=== PATIENT | female | born 1955 | race Hispanic/Latino ===

== ENCOUNTER 2024-11-11 06:54 | Day surgery (SDC) | payer OTHER ==
[2024-11-11] VITALS (12 sets, daily range): BP systolic 88–122; BP diastolic 49–66; PULSE 67–90; RESP 14–17; TEMP 97.4–97.8
[~2024-11-11] VITALS: Ht 157.5 cm; Wt 87.1 kg
[~2024-11-11 06:54] MED LIST: ASPI-1197 PO; EMPA10TA PO; INS7030 SQ; LISI5TAB21 PO; METF-527 PO; SIMV-46 PO
[2024-11-11] MEDS: 0.9%NACL 1000ML 1,000 ML IV ONE (08:22)
[2024-11-11] MEDS ORDERED: proPOFol 10 MG/ML 20ML VIAL IV ONE (09:58)
[2024-11-11] MEDS ORDERED: SIMETHICONE 40 MG/0.6 ML ML ONE (10:08)
--- NOTE | 2024-11-11 11:26 | NUR ---
Full and complete discharge instructions given to Patient and family. Voiced understanding of GI procedures and follow up expectations/Diet. All questions answered. PIV removed with catheter tip intact. W/C to POV with Family.
== END 2024-11-11 11:45 | disposition home or self-care (01) ==
LOC: DAH 06:54 → ENDO 06:54
PROVIDERS: ATTEND Internal Medicine
DX: K59.00 Constipation, unspecified (principal); K57.30 Diverticulosis of large intestine without perforation or abscess without bleeding; K62.6 Ulcer of anus and rectum; I10 Essential (primary) hypertension; E11.9 Type 2 diabetes mellitus without complications; D49.0 Neoplasm of unspecified behavior of digestive system; E78.9 Disorder of lipoprotein metabolism, unspecified; Z98.51 Tubal ligation status; Z79.4 Long term (current) use of insulin; Z79.899 Other long term (current) drug therapy
CPT/HCPCS: 45381; 45380; 82948; J7030; J2704; A4215 ×2; A4223; A4222; A4221; A4663; A4606; J3490

== ENCOUNTER → 2024-11-21 | Outpatient (CLI) | payer OTHER ==
[2024-11-21 15:54] LABS: CREATININE 0.9 mg/dL (0.5-1.0)
== END | disposition home or self-care (01) ==
LOC: LAB 14:53
PROVIDERS: ATTEND Surgery
DX: C20 Malignant neoplasm of rectum (principal)
CPT/HCPCS: 36415; 82378; 82565; 84520

== ENCOUNTER → 2024-11-24 | Outpatient (CLI) | payer OTHER ==
[~2024-11-24] MED LIST changes: +IOHEXOL 350 MG/ML 100ML INFUS..BTL IV ONE
--- NOTE | 2024-11-24 10:09 | HMCIMG ---
CT CHEST/ABD/PELV W/CONRAST HISTORY: Malignant neoplasm of rectum COMPARISON: None TECHNIQUE: Multiple sequential axial images of the chest were obtained from the thoracic inlet through upper abdomen. Patient was given 100 cc of Omnipaque through intravenous route. FINDINGS: There is no evidence of pulmonary nodule or parenchymal disease. No pleural effusion or pericardial effusion is seen. There is no evidence of pneumothorax. There are normal size mediastinal and hilar lymph nodes. The heart is not enlarged. Coronary arterial calcifications are seen. Degenerative changes of the thoracolumbar spine are present. There is no evidence of adrenal nodule. IMPRESSION: 1. No evidence of pulmonary nodule or effusion is seen. CT CHEST/ABD/PELV W/CONRAST HISTORY: Malignant neoplasm of rectum COMPARISON: None TECHNIQUE: Multiple sequential axial images of the abdomen and pelvis were obtained from the dome of the diaphragm through symphysis pubis. Patient was not given contrast through intravenous route. Oral contrast was not given. FINDINGS: Liver measures 19.4 cm with fatty changes. There is right upper pole simple renal cyst measuring 3.2 cm. The liver, spleen, adrenal glands and pancreas are unremarkable. There is no evidence of hydronephrosis bilaterally. No evidence of renal stone is seen. Fecal material is seen in the colon. There are normal size retroperitoneal and mesenteric lymph nodes. No ascites is seen. Atherosclerotic changes are present. There is questionable rectal wall thickening and clinical correlation is recommended. Pelvic sidewalls are symmetric bilaterally. Bladder is well distended without wall thickening. IMPRESSION: 1. There is questionable rectal wall thickening. No ascites is seen. No bowel obstruction is seen. CT was performed with one or more following dose reduction techniques: automated exposure control, adjustment of the mA and kv according to patient's size, or use of a iterative reconstruction technique.
== END | disposition home or self-care (01) ==
LOC: RAH 08:32
PROVIDERS: ATTEND Surgery
DX: C20 Malignant neoplasm of rectum (principal); N28.1 Cyst of kidney, acquired; K76.0 Fatty (change of) liver, not elsewhere classified; I25.10 Atherosclerotic heart disease of native coronary artery without angina pectoris; I70.90 Unspecified atherosclerosis; M47.815 Spondylosis without myelopathy or radiculopathy, thoracolumbar region; N32.89 Other specified disorders of bladder
CPT/HCPCS: 71260; 74177; Q9967

== ENCOUNTER → 2024-11-25 | Outpatient (CLI) | payer OTHER ==
[~2024-11-25] MED LIST changes: +GADOTERATE MEGLUMINE 10 MMOL/20 ML VIAL IV ONE; -IOHEXOL 350 MG/ML 100ML INFUS..BTL IV ONE
--- NOTE | 2024-11-25 13:14 | HMCIMG ---
MR PELVIS W/WO CON HISTORY: Malignant neoplasm of rectum COMPARISON: None TECHNIQUE: MRI of the pelvis was performed utilizing multiple pulse sequences in axial, coronal and sagittal planes. Patient was given 18 cc of Clariscan through intravenous route. FINDINGS: There is circumferential wall thickening noted of the rectum with enhancement measuring 9.4 mm in thickness. Clinical correlation is recommended. Patient has history of rectal cancer. Bladder is moderately distended. Uterus is prominent. There is no evidence of pelvic adenopathy or ascites. No abnormal signal intensity is seen of the visualized bony structure.. IMPRESSION: 1. Circumferential wall thickening of the rectum with mild enhancement may be related to patient history of rectal cancer and clinical correlation is recommended. No evidence of pelvic adenopathy or ascites is seen.
== END | disposition home or self-care (01) ==
LOC: RAH 10:44
PROVIDERS: ATTEND Surgery
DX: C20 Malignant neoplasm of rectum (principal); N32.9 Bladder disorder, unspecified
CPT/HCPCS: 72197; A9575

== ENCOUNTER → 2025-05-27 | Outpatient (CLI) | payer OTHER ==
--- NOTE | 2025-05-28 08:37 | HMCIMG ---
EXAMINATION: MRI OF THE PELVIS WITHOUT AND WITH CONTRAST CLINICAL HISTORY: Malignant neoplasm of rectum. COMPARISON: MRI pelvis on 11/25/2024. TECHNIQUE: Multiplanar, multisequence MR images of the pelvis were obtained before and after the administration of intravenous contrast. FINDINGS: The urinary bladder is suboptimally distended with increased wall thickness. No intravesical mass. The uterus is normal in caliber and signal intensity. Bilateral ovaries are normal in caliber and signal intensity. There is minimal circumferential wall thickening with a maximum thickness of 4 mm extending for a length of 3.5 cm involving the rectum. There is no infiltration/extension into the surrounding structures. Rest of the included gastrointestinal tract is normal without any obstruction, ileus, or bowel wall thickening. The pelvic wall and floor musculature are well delineated and do not show any abnormality. The pelvic vascular structures are also normal. The bones and the joints of the pelvis are normal. No ascites. No lymphadenopathy. IMPRESSION: Minimal circumferential wall thickening involving the rectum ??? interval new finding. This may further be characterized with colonoscopy correlation. Cystitis. /[place]
== END | disposition home or self-care (01) ==
LOC: RAH 07:59
PROVIDERS: ATTEND Surgery
DX: C20 Malignant neoplasm of rectum (principal); N30.90 Cystitis, unspecified without hematuria; N32.89 Other specified disorders of bladder
CPT/HCPCS: 72197; A9575

== ENCOUNTER 2025-07-17 10:12 | Day surgery (SDC) | payer OTHER ==
[~2025-07-17 10:12] MED LIST changes: -ASPI-1197 PO; +CALC-1125 PO; +CHOL100046 PO; -GADOTERATE MEGLUMINE 10 MMOL/20 ML VIAL IV ONE; -INS7030 SQ; +INSU100I13 SQ; +METF-446 PO; -METF-527 PO
[2025-07-17 10:40] VITALS: BP 81/41; PULSE 96; RESP 13; TEMP 97.8
--- NOTE | 2025-07-17 11:00 | NUR ---
PT STATED SHE WAS DISCHARGED FROM THE HOSPITAL 2 DAYS AGO FOR A COLON RESECTION WITH DR. GHOTRA. PT STATES SHE WAS ADMITTED X 2 WEEKS FOLLOW UP APPOINTMENT TODAY DR. GHOTRA TOLD HER SHE HAS MORE DISCHARGE THAN NORMAL FROM COLOSTOMY AND WOULD LIKE TO SEND HER IN FOR IV HYDRATION
[2025-07-17] MEDS: LACTATED RINGERS 1000ML IV SCH (11:43)
[2025-07-17 11:48] VITALS: BP 86/40; PULSE 85; RESP 14
[2025-07-17 12:15] VITALS: BP 97/49; PULSE 86; RESP 13
--- NOTE | 2025-07-17 12:50 | NUR ---
PT STATES FEELING BETTER AFTER 1ST BAG OF LR ADMINISTERED
[2025-07-17 13:00] VITALS: BP 96/58; PULSE 86; RESP 14
--- NOTE | 2025-07-17 13:05 | NUR ---
CALL PENDING FROM [facility] TO ADVISE THEM ABOUT PATIENTS VS AND IF OK TO DISCHARGE. PENDING CALL BACK
[2025-07-17 13:35] VITALS: BP 99/47; PULSE 87; RESP 14
--- NOTE | 2025-07-17 13:35 | NUR ---
NURSING STAFF FROM [facility] MESSAGE ABOUT PATIENTS VS AND CURRENT STATUS TO DR. GHOTRA, PER STAFF DR. GHOTRA STATED OK TO DISCHARGE HOME. PT AND FAMILY MEMBER AT BEDSIDE INSTRUCTED TO GO TO ER IF S/S WORSEN OR CONTINUE PT TAKEN OUT VIA WHEELCHAIR IV REMOVED
== END 2025-07-17 13:40 | disposition home or self-care (01) ==
LOC: DAH 10:12
PROVIDERS: ATTEND Surgery
DX: E86.0 Dehydration (principal); C20 Malignant neoplasm of rectum; E87.1 Hypo-osmolality and hyponatremia; I12.9 Hypertensive chronic kidney disease with stage 1 through stage 4 chronic kidney disease, or unspecified chronic kidney disease; E11.22 Type 2 diabetes mellitus with diabetic chronic kidney disease; N18.9 Chronic kidney disease, unspecified; I25.10 Atherosclerotic heart disease of native coronary artery without angina pectoris; E78.5 Hyperlipidemia, unspecified; E66.9 Obesity, unspecified; Z68.32 Body mass index [BMI] 32.0-32.9, adult; Z79.4 Long term (current) use of insulin; Z79.899 Other long term (current) drug therapy; Z93.2 Ileostomy status
CPT/HCPCS: 96360; 96361; A4223 ×2; J7120 ×2; A4215; A4221; A4663; A4216; A4606

== ENCOUNTER 2025-07-20 15:01 | Inpatient (IN) | payer OTHER ==
[2025-07-20] VITALS (8 sets, daily range): BP systolic 91–113; BP diastolic 50–57; PULSE 92–102; RESP 13–24; O2SAT 96
[~2025-07-20] VITALS: Ht 157.5 cm; Wt 79.8 kg
--- NOTE | 2025-07-20 15:19 | ERN ---
ED Note History of Present Illness Stated Complaint: HYPOTENSION, DIZZINES Chief Complaint: Dizzy/Light Headed Time Seen by MD: 15:03 Dictation: PATIENT IS A 69-YEAR-OLD FEMALE COMING IN WITH HER FAMILY WITH COMPLAINTS OF HAVING DIZZINESS FEELING LIGHTHEADED AND HAVING BLOOD PRESSURE RUNNING IN THE 70S 80 SYSTOLIC FOR THE LAST WEEK. NO NAUSEA VOMITING. SHE DOES HAVE AN ILEOSTOMY IN PLACE THAT HAS BEEN PUTTING OUT MORE THAN A 1000 ML A DAY. NO FEVER NO CHILLS NO HEADACHE. SHE WAS TO GO TODAY TO OUTPATIENT TREATMENT FOR IV FLUIDS HOWEVER CAME TO THE EMERGENCY ROOM INSTEAD. Allergies: Coded Allergies: No Known Drug Allergies (Unverified Allergy, Unknown, 11/10/24) Home Meds Reported Medications Cholecalciferol (Vitamin D3) (Vitamin D3) 25 Mcg (1000 Unit) Capsule, 25 MCG PO DAILY, CAP 07/01/25 Calcium Carbonate (Calcium) 600 Mg Calcium (1500 Mg) Tablet, 600 MG PO DAILY, TAB 07/01/25 Insulin NPL/Insulin Lispro (Humalog Mix 75-25 Kwikpen) 100 Unit/Ml (75-25) Insuln.pen, 55 UNITS SQ HS, SYRINGE 07/01/25 Insulin NPL/Insulin Lispro (Humalog Mix 75-25 Kwikpen) 100 Unit/Ml (75-25) Insuln.pen, 50 UNITS SQ DAILY, SYRINGE 07/01/25 Empagliflozin (Jardiance) 10 Mg Tablet, 10 MG PO DAILY, TAB 07/01/25 Metformin HCl (Metformin HCl) 1,000 Mg Tablet, 1000 MG PO DAILY, TAB 07/01/25 Simvastatin (Simvastatin) 40 Mg Tablet, 40 MG PO HS, TAB 06/29/25 Lisinopril (Lisinopril) 5 Mg Tablet, 5 MG PO DAILY, TAB 06/29/25 Past Medical History Past Medical History: Diabetes-Type II, Hypertension Surgical History: Other Surgical History Other: TUBAL LIGATION History: Not Applicable RN Note Reviewed/Agreed w/PFSH: Yes Review of System Dictation CONSTITUTIONAL: NEGATIVE EXCEPT FOR HPI HEAD/FACE: NEGATIVE EXCEPT FOR HPI EENT: NEGATIVE EXCEPT FOR HPI RESPIRATORY: NEGATIVE EXCEPT FOR HPI GASTROINTESTINAL/ABDOMINAL: NEGATIVE EXCEPT FOR HPI ILEOSTOMY WITH LARGE AMOUNTS OF LIQUID STOOL GENITOURINARY: NEGATIVE EXCEPT FOR HPI MUSCULOSKELETAL: NEGATIVE EXCEPT FOR HPI INTEGUMENTARY: NEGATIVE EXCEPT FOR HPI NEUROLOGICAL/PSYCH: NEGATIVE EXCEPT FOR HPI LIGHTHEADED LAST DIZZY HEMATOLOGIC/LYMPHATIC: NEGATIVE EXCEPT FOR HPI ALL SYSTEMS NEGATIVE, EXCEPT NOTED ABOVE. 13 POINT REVIEW OF SYSTEMS ASSESSED AND ALL NEGATIVE EXCEPT FOR ABOVE. Initial Vital Sign VS Vital Signs Date Time Temp Pulse Resp B/P (MAP) Pulse Ox O2 Delivery O2 Flow Rate FiO2 07/20/25 15:13 98.1 98 16 86/51 98 Room Air* 0 21 Physical Exam Dictation NORMAL EXAM VITAL SIGNS REVIEWED GENERAL APPEARANCE: ALERT, ORIENTED X 3, NO ACUTE DISTRESS, WELL DEVELOPED, NOURISHED. HEAD AND FACE: NON-TRAUMATIC. EYES: PERRL, PINK CONJUNCTIVAS, EYELID NO TRAUMA, ANTERIOR CHAMBER WITH ARCUS SENILIS. EARS: PINNAS INTACT AND NO SIGNS OF TRAUMA OR ERYTHEMA EAR CANALS CLEAR AND NO DISCHARGE TM NO ERYTHEMA NOSE: NO DISCHARGE, NO BLEEDING. OROPHARYNX: MOUTH NORMAL, TONGUE PINK, PHARYNX CLEAR,NO ERYTHEMA, TONSILS NO EXUDATES, NO ABSCESSES NOTED, MUCOUS MEMBRANE MOIST NECK: SUPPLE, NON-TENDER, NO THYROMEGALY, NO MASSES, NO JVD, NO BRUITS BREAST:DEFERRED CHEST:NO TENDERNESS, NO CREPITUS, NO PARADOXICAL MOVEMENT, NO RETRACTIONS LUNGS:CLEAR, WELL-VENTILATED, SYMMETRIC, NO RALES, NO WHEEZING, NO RHONCHI, NO STRIDOR, GOOD BREATH SOUNDS BILATERALLY HEART: REGULAR RATE, REGULAR RHYTHM, NO MURMUR, NO GALLOPS VASCULAR: NO PERIPHERAL EDEMA, ABDOMEN: SOFT, POSITIVE BOWEL SOUNDS, NONDISTENDED, NO GUARDING, NONTENDER, NO REBOUND, NO MASSES NO HEPATOMEGALY, NO SPLENOMEGALY, NO GONZALEZ'S SIGN, NO HERNIAS. ILEOSTOMY TO RIGHT LOWER QUADRANT WITH LARGE AMOUNT OF YELLOW LIQUID STOOL. RECTAL: DEFERRED GENITAL: DEFERRED NEUROLOGICAL: NORMAL SPEECH, MOTOR FUNCTION INTACT, SENSORY FUNCTION INTACT GB W ALL EXTREMITIES NIH IS 0 MUSCULOSKELETAL: NECK NONTENDER, FULL RANGE OF MOTION, BACK NONTENDER, FULL RANGE OF MOTION, EXTREMITIES: NONTENDER, FULL RANGE OF MOTION SKIN: COLOR PINK, DRY, NO TURGOR, NO RASH, NO LACERATIONS, NO ABRASIONS, NO CONTUSIONS. LYMPHATIC: DEFERRED Results (Laboratory/Radiology) Laboratory/Radiology Laboratory Tests Test 07/20/25 15:31 White Blood Count 6.8 K/uL (4.8-10.8) Red Blood Count 3.38 MIL/uL (4.00-5.50) L Hemoglobin 9.6 g/dL (12.0-16.0) L Hematocrit 29.5 % (36-48) L Mean Corpuscular Volume 87.3 fL (79-99) Mean Corpuscular Hemoglobin 28.4 pg (27.0-33.0) Mean Corpuscular Hemoglobin Concent 32.5 g/dL (32.0-36.0) Red Cell Distribution Width 15.8 % (11.0-15.5) H Platelet Count 271 K/uL (130-400) Mean Platelet Volume 9.0 fL (7.5-10.5) Immature Granulocyte % (Auto) 1.6 % (0-1) H Neutrophils (%) (Auto) 62.4 % (40.0-77.0) Lymphocytes (%) (Auto) 20.4 % (21.0-51.0) L Monocytes (%) (Auto) 14.6 % (3.0-13.0) H Eosinophils (%) (Auto) 0.9 % (0.0-8.0) Basophils (%) (Auto) 0.1 % (0.0-5.0) Neutrophils # (Auto) 4.2 K/uL (1.8-7.7) Lymphocytes # (Auto) 1.4 K/uL (1.0-4.8) Monocytes # (Auto) 1.0 K/uL (0.1-1.0) Eosinophils # (Auto) 0.06 K/uL (0.00-0.70) Basophils # (Auto) 0.01 K/uL (0.00-0.20) Absolute Immature Granulocyte (auto 0.11 K/uL (0-1) Nucleated Red Blood Cells 0.0 % (0.0-0.19) Sodium Level 124 mmol/L (136-145) L Potassium Level 5.3 mmol/L (3.5-5.1) H Chloride Level 86 mmol/L (101-111) *L Carbon Dioxide Level 25 mmol/L (21-32) Blood Urea Nitrogen 59 mg/dL (7-18) H Creatinine 5.1 mg/dL (0.5-1.0) H Glomerular Filtration Rate Calc 9 mL/min (>90) Random Glucose 155 mg/dL (70-105) H Lactic Acid Level 4.2 mmol/L (0.8-2.5) H Total Calcium 8.6 mg/dL (8.5-10.1) Troponin I High Sensitivity < 4 ng/L (4-50) L Lipase 145 U/L (16-77) H Labs Reviewed?: Yes EKG Comment: EKG sinus rhythm/heart rate 92/axis normal/no ED Course ED Course Orders Procedure Category Date Status Time Blood Cult ELVIA 07/20/25 In Process 15:16 Lactic Acid LAB 07/20/25 Complete 15:16 Cbc With Differential LAB 07/20/25 Complete 15:16 Troponin I High LAB 07/20/25 Complete Sensitivity 15:16 Urinalysis Profile LAB 07/20/25 Logged 15:16 12 Lead Ekg Tracing- EKG 07/20/25 Logged Technical 15:16 0.9%Nacl 1000ml (Ns PHA 07/20/25 Complete 1000ml) 15:30 Stool Culture ELVIA 07/20/25 Logged 15:16 Lipase LAB 07/20/25 Complete 15:16 Basic Metabolic Panel LAB 07/20/25 Complete 15:16 Stool Panel Gi By Pcr LAB 07/20/25 Logged 15:16 Zosyn 3.375gm+Ns 50ml PHA 07/20/25 Complete (Zosyn 3.375gm+Ns 16:01 0.9%Nacl 1000ml (Ns PHA 07/20/25 In Process 1000ml) 16:30 Current Medications Medications (Trade) Dose Ordered Sig/Evelyne Route PRN Reason Start Time Stop Time Status Last Admin Dose Admin Piperacillin Sod/ Tazobactam Sod 50 ml @ 200 mls/hr ONCE STAT IVPB 07/20/25 16:01 07/20/25 16:15 DC 07/20/25 16:10 Sodium Chloride 1,000 ml @ 0 mls/hr ONCE ONCE IV 07/20/25 15:30 07/20/25 15:31 DC 07/20/25 15:53 Sodium Chloride 2,394 ml @ 798 mls/hr ONCE ONCE IV 07/20/25 16:30 07/20/25 19:29 07/20/25 16:10 Vital Signs Date Time Temp Pulse Resp B/P (MAP) Pulse Ox O2 Delivery O2 Flow Rate FiO2 07/20/25 15:14 99 18 86/51 95 Room Air 0 10/6/25 15:13 98.1 98 16 86/51 98 Room Air* 0 21 1745/patient and family aware she has been admitted for lactic acid doses acute on chronic kidney failure. Hyponatremia dehydration. All questions and patient remains hemodynamically stable at this time. Last blood pressure 136/80 systolic 1745/spoke to [facility] hospitalist and reviewed labs interventions for severe sepsis she agreed to admit patient. She is aware patient is hemodynamically stable at the present time. All questions answered HEART Score Response (Comments) Value History: Low suspicion (0) 0 Age: > 65yrs (+2) 2 Risk Factors: 1-2 risk factors (+1) 1 Initial Troponin: Normal limit (0) 0 Total 3 Medical Decision Making MDM MDM: Differential diagnosis: Electrolyte imbalance/dehydration/CHANCE/GI infection/electrolyte imbalance/dehydration/ACS/AMI Rationale: Tests considered and ordered secondary to shared decision making include: labs, ECG and radiology Previous outside records reviewed: Old ER visits. Risk of complication and/or morbidity or mortality of patient management: None Medications-Per medication reconciliation Need for hospitalization: Patient does meet criteria for hospitalization. Patient need admitted for septic shock CHANCE and failure fluids and management of her ileostomy drainage Need for emergency major/minor surgery: No There are no social concerns with this patient. Prescription drug management Prescriptions will include symptomatic care Patient's prior external medical records from other ER visits were reviewed by me as indicated. Prior testing and results from previous visits were reviewed. Prior tests were taken into account with medical decision making and resource utilization, independent historian/historians were used to obtain complete medical history. I independently interpreted the test that were performed, results were reviewed by me and considered findings on radiology if ordered. Medical management and examination interpretation discussions were had by me with other qualified healthcare professionals as indicated for the patient's care. DX & DISP Disposition: Inpatient Decision to Admit Time: 17:53 Departure Impression: Primary Impression: Hyponatremia Additional Impressions: Acute on chronic renal failure, Anemia, chronic renal failure, Hypochloremia, Severe sepsis, Uncontrolled diabetes mellitus, Diarrhea, Increased ileostomy output Condition: Stable Referrals: LUIS BEARD MD (PCP) Time of Disposition: 17:53 I have reviewed the case, and I agree with, Diagnosis and Plan GIANFRANCO AUSTIN NP Jul 20, 2025 15:19
[2025-07-20 15:37] LABS: IMMATURE GRANULOCYTE ABSOLUTE 0.11 K/uL (0-1); NUCLEATED RED BLOOD CELLS 0.0 % (0.0-0.19); PLATELET COUNT (AUTO) 271 K/uL (130-400); RED BLOOD CELL COUNT(AUTO) 3.38 MIL/uL (4.00-5.50); RED CELL DISTRIBUTION WIDTH 15.8 % (11.0-15.5); WHITE BLOOD COUNT (AUTO) 6.8 K/uL (4.8-10.8)
[2025-07-20] MEDS: 0.9%NACL 1000ML 1,000 ML IV ONE ×2 (15:53→19:02)
[2025-07-20 16:01] LABS: CREATININE 5.1 mg/dL (0.5-1.0); GLOMERULAR FILTR. RATE CALC 9.0 mL/min (>90); GLUCOSE,RANDOM 155.0 mg/dL (70-105); SODIUM SERUM 124.0 mmol/L (136-145); UREA NITROGEN, BLOOD 59.0 mg/dL (7-18)
[2025-07-20] MEDS: ZOSYN 3.375GM+NS 50ML 50 ML IVPB STA (16:10)
[2025-07-20] MEDS: 0.9%NACL 1000ML 2,394 ML IV ONE (16:10)
[2025-07-20 18:00] LABS: ADD UA MICROSCOPIC YES; APPEARANCE,URINE CLEAR (CLEAR); GLUCOSE, URINE (UA) NEGATIVE (NEGATIVE); LEUKOCYTE ESTERASE ,URINE 25 Leu/uL (NEGATIVE); NITRATE,URINE NEGATIVE (NEGATIVE); OCCULT BLOOD,URINE NEGATIVE (NEGATIVE)
[2025-07-20 18:02] LABS: OTHER CASTS, URINE 1 /LPF (None Seen); SQUAMOUS EPITHELIAL CELL,UR RARE /HPF (0-2); WBC CLUMP RARE /HPF (0-1)
--- NOTE | 2025-07-20 18:21 | EKG ---
[facility] Test Date: 2025-07-20 Test Time: 15:18:34 Pat Name: YAMILET RUBIO Department: [facility] Room: 219 Gender: F Academic Affairs Specialist: [id number] : [id number] Requested By: GIANFRANCO AUSTIN Order Number: [id number] Reading MD: Rosario Taylor Measurements Intervals [place] Rate: 92 P: 34 WA: 147 QRS: -15 QRSD: 93 T: 26 QT: 362 QTc: 450 Interpretive Statements Sinus rhythm Compared to ECG 07/05/2025 12:11:35 Myocardial infarct finding no longer present Electronically Signed On 07-21-2025 16:11:27 CDT by Rosario Taylor Please click the below link to view image of tracing.
--- NOTE | 2025-07-20 18:47 | NUR ---
[facility] [phone]
--- NOTE | 2025-07-20 18:51 | HP ---
[facility] HISTORY & PHYSICAL Date Patient Seen: Jul 20, 2025 Time of Visit: 18:50 Supervising Physician: Dr. Zay Blanco Primary Care Physician: Clare Thomas Outpatient Specialists: GI Inpatient Consults: GI PROBLEM LIST: Sepsis with septic shock, POA, unresponsive to fluids resuscitation, in need of pressors Acute complicated cystitis, POA Hypotension, in need of pressors Acute on chronic renal failure, POA (GFR 9, GFR 49 on 07/15/2025) Severe dehydration, POA 2/2 severe diarrhea Increased ileostomy/severe diarrhea Hyponatremia/hypochloremia Uncontrolled diabetes mellitus Anemia of chronic renal failure Chronic problem list/history: Rectal cancer status post low anterior resection, robotic creation of diverting ileostomy Hyperlipidemia Diabetes mellitus type two with hyperglycemia HPI: Ms. Varela, is a 69-year-old female with a history of diabetes-type II, and hypertension who presented with [facility] via EMS for evaluation of having dizziness, feeling lightheaded, and having blood pressure running in the 70s and 80s systolic for the last week. She does have an ileostomy in place that has been putting out ''more than a 1000 ml a day. The patient denied fever, nausea, vomiting, chills and headaches. The patient had an appointment today to the outpatient treatment for IV fluid, however, she came to the emergency room instead. The daughter at bedside reports that patient has decreased p.o. VS: HR 99 bmp, RR 18 bmp, BP 86/51, 95% RA, 98.1 F, O2 Delivery Method: Room Air, O2 Flow Rate: 0, Fio2: 21, Labs: Hematology: RBC 3.38, Hgb 9.6, Hct 29.5, RDW 15.8, Chemistry: Sodium 124, Potassium 5.35, Chloride 86, BUN 59, Creatinine 5.1, Random Glucose 155, Lactic Acid 4.2, Troponin I High Sens <4, Lipase 145, UA: Negative Nitrate, UA: Leuk Est 25, Serology: C. difficile: Negative. I assessed the patient at bedside in 219. Two daughters were at bedside. Patient's breathing was even, unlabored, in no distress. Patient appeared weak and chronically ill. I informed the patient and daughter of labs, diagnostics, and plan of care. I answered the daughter's multiple questions. They verbalized understanding and is in agreement with the plan. Plan and assessment are listed below. PAST MEDICAL HX: see above PAST SURGICAL HX: Tubal Ligation Rectal cancer status post low anterior resection, robotic creation of diverting ileostomy SOCIAL HISTORY: No tobacco, ETOH, or illicit drug use Coded Allergies: No Known Drug Allergies (Unverified Allergy, Unknown, 11/10/24) REVIEW OF SYSTEMS: 12 point ROS reviewed with patient. Pertinent positives mentioned above. Otherwise negative. PHYSICAL EXAM: GENERAL: Alert, awake, oriented x 3 HEENT: EOMI, Sclera non icteric, moist mucosa NECK: Supple, no JVD, trachea midline LUNGS: Clear breath sounds bilaterally. No wheezes HEART: Regular rate and rhythm. Normal S1 and S2, without murmurs ABD: Abdomen soft, nontender. Bowel sounds present. Ileostomy with watery greenish stool. EXT: No clubbing cyanosis or edema NEURO: Alert and oriented to person, follows commands Vital Signs (last 8hr) Date Time Temp Pulse Resp B/P (MAP) Pulse Ox O2 Delivery O2 Flow Rate FiO2 07/20/25 18:46 Room Air* 0 21 07/20/25 18:44 98.1 111 16 81/44 98 Room Air* 0 21 07/20/25 18:44 Room Air* 0 21 07/20/25 18:40 98.1 98 16 76/45 98 Room Air* 0 21 07/20/25 15:14 99 18 86/51 95 Room Air 0 07/20/25 15:13 98.1 98 16 86/51 98 Room Air* 0 21 LABS: Hematology Labs: Test 07/20/25 15:31 Range/Units White Blood Count 6.8 4.8-10.8 K/uL Red Blood Count 3.38 L 4.00-5.50 MIL/uL Hemoglobin 9.6 L 12.0-16.0 g/dL Hematocrit 29.5 L 36-48 % Mean Corpuscular Volume 87.3 79-99 fL Mean Corpuscular Hemoglobin 28.4 27.0-33.0 pg Mean Corpuscular Hemoglobin Concent 32.5 32.0-36.0 g/dL Red Cell Distribution Width 15.8 H 11.0-15.5 % Platelet Count 271 130-400 K/uL Mean Platelet Volume 9.0 7.5-10.5 fL Immature Granulocyte % (Auto) 1.6 H 0-1 % Neutrophils (%) (Auto) 62.4 40.0-77.0 % Lymphocytes (%) (Auto) 20.4 L 21.0-51.0 % Monocytes (%) (Auto) 14.6 H 3.0-13.0 % Eosinophils (%) (Auto) 0.9 0.0-8.0 % Basophils (%) (Auto) 0.1 0.0-5.0 % Neutrophils # (Auto) 4.2 1.8-7.7 K/uL Lymphocytes # (Auto) 1.4 1.0-4.8 K/uL Monocytes # (Auto) 1.0 0.1-1.0 K/uL Eosinophils # (Auto) 0.06 0.00-0.70 K/uL Basophils # (Auto) 0.01 0.00-0.20 K/uL Absolute Immature Granulocyte (auto 0.11 0-1 K/uL Nucleated Red Blood Cells 0.0 0.0-0.19 % Chemistry Labs: Test 07/20/25 15:31 Range/Units Sodium Level 124 L 136-145 mmol/L Potassium Level 5.3 H 3.5-5.1 mmol/L Chloride Level 86 *L 101-111 mmol/L Carbon Dioxide Level 25 21-32 mmol/L Blood Urea Nitrogen 59 H 7-18 mg/dL Creatinine 5.1 H 0.5-1.0 mg/dL Glomerular Filtration Rate Calc 9 >90 mL/min Random Glucose 155 H 70-105 mg/dL Lactic Acid Level 4.2 H 0.8-2.5 mmol/L Total Calcium 8.6 8.5-10.1 mg/dL Troponin I High Sensitivity < 4 L 4-50 ng/L Lipase 145 H 16-77 U/L DIAGNOSTICS / RADIOLOGY RESULTS: [ ] PLAN Transfer to ICU with continuous cardiac and pulse oximetry monitoring. Continue Zosyn 3.375 IV q.12 hours per renal dose. Start to the Levophed IV to keep map above 65. Titrate down and wean off Levophed. Continue midodrine 10 mg p.o. t.i.d.. NS 1 L bolus now then NS at 100 mL an hour. (ED administered 30 mL/kilos) Consult Dr. Quarles, Nephrology for acute renal failure. Consult GI. P.r.n. medications for pain management, nausea, vomiting, hypertension, fever, constipation Glucometer checks a.c. and HS with insulin regular sliding scale per protocol. Blood pressure checks every 4 hours and as needed. Reconcile home medications once available. Monitor renal and liver function. Monitor electrolytes and treat accordingly. A.m. labs. GI and DVT prophylaxis. Further orders/plan per hospitalization course. NEURO: Minimize central acting medications as possible. Maintain fall precautions, adequate lighting during the day PULMONARY: Supplemental 02 as needed. Maintain aspiration precautions at all times CARDIOVASCULAR: Follow hemodynamics. Vital signs per facility protocol GI & NUTRITION: Continue with nutritional support. Continue stool softeners and laxatives as needed. KIDNEYS & ELECTROLYTES: Strict monitoring of intake, output and overall fluid balance. Avoid nephrotoxic medications to the extent possible. Medications to be dosed according to renal function. Monitor electrolytes and replace as needed ENDOCRINE: Maintain blood glucose between 100-180 at all times. Hypoglycemia protocol in place INFECTIOUS DISEASE: Trend temperature, WBC and procalcitonin level Follow cultures, deescalate antibiotics as soon as possible. Panculture if new onset fever ONCOLOGY/HEMATOLOGY/COAGULATION: Monitor for s/s of bleeding Monitor hemoglobin, coagulation studies as needed SKIN: Pressure ulcer prevention per facility protocol Specialty mattress ORTHO/REHAB: Continue PT/OT Prophylaxis: Continue GI and DVT prophylaxis Code Status: Full Resuscitation Disposition: TBD Total critical care time over 60 minutes. ATTESTATION BY PHYSICIAN I reviewed the documentation, medical decision making, and treatment plan as n oted by the MICHELLE above. I agree with the findings and plan of care. Nikolas Melendez MD, LUCIA M FNP Jul 20, 2025 18:50
--- NOTE | 2025-07-20 18:51 | NUR ---
SECRATARY ATTEMPTING CELL PHONE FOR [facility] AT THIS TIME
--- NOTE | 2025-07-20 18:55 | NUR ---
SPOKE WITH JOHSUA AT [facility] ORDERS TO BE INPUT
--- NOTE | 2025-07-20 18:56 | NUR ---
NOTIFIED JOSHUA OF BP DROP AND WILL REC ORDERS TO ASSIST WITH TREND
--- NOTE | 2025-07-20 19:24 | NUR ---
ASSUMED PT CARE
[2025-07-20] MEDS: NOREPINEPHRIN 4MG/NS 250ML 250 ML IV SCH (19:25)
[2025-07-20] MEDS: 0.9%NACL 1000ML 1,000 ML IV SCH (20:23)
--- NOTE | 2025-07-20 20:36 | NUR ---
STOOL SAMPLE SENT BLADDER SCAN DONE APPROX 900MLS
[2025-07-20] MEDS: FAMOTIDINE 20MG TAB PO SCH (20:44)
--- NOTE | 2025-07-20 21:30 | NUR ---
RECEIVED REPORT FROM ENDY CAMARA FROM ER; PATIENT BROUGHT UP, AOX4, IN NO DISTRESS, VITALS CHARTED, NO WOUNDS, ALL HER ITEMS WERE BROUGHT UP IN A BAG, DAUGHTERS AT BEDSIDE
--- NOTE | 2025-07-20 22:42 | NUR ---
YAMIL [employer] WE[employer] APPLICATION DEVELOPER BEDSIDE WITH PATIENT
[2025-07-20] MEDS ORDERED: 0.9%NACL 50ML IV SCH (23:10)
[2025-07-21] VITALS (97 sets, daily range): BP systolic 77–136; BP diastolic 37–84; PULSE 58–109; RESP 12–42; TEMP 98.1–98.9; O2SAT 92–98
--- NOTE | 2025-07-21 00:39 | HMCIMG ---
EXAM: CT Abdomen and Pelvis Without IV contrast CLINICAL HISTORY: abd pain, anorexia, s/p ileostomy, septic shock TECHNIQUE: Axial computed tomography images of the abdomen and pelvis without intravenous contrast. CONTRAST: No IV contrast. COMPARISON: July 09, 2025 FINDINGS: LUNG BASES: Minimal bibasilar infiltrates. No pleural effusions LIVER: Unremarkable. GALLBLADDER AND BILE DUCTS: The gallbladder appears within normal limits. No radioopaque gallstones are seen. No biliary ductal dilatation is evident. PANCREAS: Unremarkable. SPLEEN: Unremarkable. ADRENAL GLANDS: Unremarkable. KIDNEYS, URETERS, AND BLADDER: Bilateral renal cysts.. There is no hydronephrosis or hydroureter. No urinary calculi are seen. STOMACH AND BOWEL: Several dilated loops of small bowel identified. The terminal ileum is decompressed.. There may be a point of transition within the pelvis.. No evidence suggesting enteritis or colitis. Right lower quadrant ostomy is seen. Surgical clips are seen within the rectum with thickening of the presacral space. APPENDIX: No evidence of acute appendicitis on CT examination. PERITONEUM: No free fluid. No free air. LYMPH NODES: No lymphadenopathy is evident. REPRODUCTIVE: Unremarkable as visualized. VASCULATURE: No evidence of abdominal aortic aneurysm. BONES: No aggressive appearing osseous lesion. No acute osseous pathology evident. IMPRESSION: 1. Findings suggest low-grade distal small bowel obstruction, which was present previously but appears to be overall improved. /[place]
[2025-07-21 00:52] LABS: ABG BASE EXCESS -2.1 mmol/L (-2.0-3.0); ABG HCO3 21.7 mmol/L (21.0-28.0); ABG OXYGEN SATURATION 91.8 % (94.0-98.0); ABG PCO2 34 mmHg (32-45); ABG PH 7.424 (7.350-7.450); CARBON MONOXIDE 0 % (0.5-1.5); DEVICE COMMENT RB,NP LUCIA; PO2, ARTERIAL BG 66.8 mmHg (83.0-108.0); TEMPERATURE, CELSIUS BG 37.0 CELSIUS (35.5-37.0); VENT MODE, BG RA (ROOM AIR)
[2025-07-21] MEDS: ZOSYN 3.375GM +NS 50ML IVPB SCH (02:12)
[2025-07-21 05:21] LABS: NUCLEATED RED BLOOD CELLS 0.0 % (0.0-0.19); PLATELET COUNT (AUTO) 233.0 K/uL (130-400); RED BLOOD CELL COUNT(AUTO) 3.3 MIL/uL (4.00-5.50); RED CELL DISTRIBUTION WIDTH 15.8 % (11.0-15.5); WHITE BLOOD COUNT (AUTO) 4.9 K/uL (4.8-10.8)
[2025-07-21 05:54] LABS: CREATININE 2.7 mg/dL (0.5-1.0); GLOMERULAR FILTR. RATE CALC 19.0 mL/min (>90); GLUCOSE,RANDOM 147.0 mg/dL (70-105); PHOSPHORUS 4.3 mg/dL (2.5-4.9); SODIUM SERUM 137.0 mmol/L (136-145); UREA NITROGEN, BLOOD 41.0 mg/dL (7-18)
--- NOTE | 2025-07-21 08:02 | PN ---
[facility] PROGRESS NOTE Date Patient Seen: Jul 21, 2025 Time of Visit: 08:02 Supervising Physician: ARACELI PHILLIP MD Primary Care Physician: LUIS BEARD MD Outpatient Specialists: [ ] Inpatient Consults: [facility] PROBLEM LIST: Septic shock likely from acute complicated cystitis POA requiring pressors Acute complicated cystitis, POA Prerenal CHANCE on CKD, POA, improving Severe dehydration from high output ileostomy, POA Electrolyte derangement hyperkalemia, hypochloremia, hyponatremia. Mild Pancreatitis Elevated lactic acid, POA Hyperglycemia in the presence of type 2 diabetes mellitus, POA Chronic anemia likely from CKD Chronic problem list/history: Rectal cancer status post low anterior resection, robotic creation of diverting ileostomy Hyperlipidemia Diabetes mellitus type two with hyperglycemia INTERVAL HISTORY: Chart reviewed including all laboratory and imaging results. Patient assessed at bedside. Denies chest pain, palpitation, or shortness for breath. Reports feeling much better. Improved dizziness and weakness reported. Hemodynamically stable. On low-dose Levophed of 0.03 mcg/kg per minute. She continues on NS at 100 mL/hour. We will give 1 L bolus at this time. No other major overnight events reported. She has had good urine output of 2.1 L in last 24 hours. Kidneys are improving with creatinine of 2.7 GFR of 19 BUN of 41 glucose 147 mg/dL drip. Lactic acid trending down 2.9 the latest. Hemoglobin of 9.4 hematocrit of 29.1 platelet count of 233 K. ABGs morning shows a pH of 7.424/34/66.84/21.7. Urine culture growing Gram-negative rods. Patient to continue Zosyn. Chest x-ray with no acute pathology.Right chest wall Port-A-Cath. Pending blood cultures. REVIEW OF SYSTEMS: 12 point ROS reviewed with patient. Pertinent positives mentioned above. Otherwise negative. PHYSICAL EXAM: GENERAL: alert, weak, awake oriented x 3 HEENT: EOMI, Sclera non icteric, moist mucosa NECK: Supple, no JVD, trachea midline LUNGS: Clear breath sounds bilaterally. No wheezes HEART: Regular rate and rhythm. Normal S1 and S2, without murmurs. Right chest PermCath ABD: Obese Abdomen soft, nontender. Bowel sounds present. colostomy Urinary: Coronado catheter in place EXT: No clubbing cyanosis or edema NEURO: Alert and oriented to person, follows commands Vital Signs (last 8hr) Date Time Temp Pulse Resp B/P (MAP) Pulse Ox O2 Delivery O2 Flow Rate FiO2 07/21/25 06:47 111/56 07/21/25 06:45 65 17 105/57 (73) 95 07/21/25 06:30 74 17 103/55 (71) 95 07/21/25 06:20 81 19 77/41 (53) 90 07/21/25 06:15 65 18 111/56 (74) 96 07/21/25 06:00 66 15 103/56 (72) 92 07/21/25 05:45 78 15 120/58 (78) 100 07/21/25 05:30 78 22 103/56 (72) 95 07/21/25 05:15 64 18 97/49 (65) 96 07/21/25 05:00 73 17 108/55 (72) 94 07/21/25 04:45 78 17 94/67 (76) 92 07/21/25 04:30 74 18 103/55 (71) 94 07/21/25 04:15 63 18 103/46 (65) 98 07/21/25 04:00 98.1 07/21/25 04:00 64 16 110/51 (70) 93 07/21/25 04:00 93 Room Air* 0 21 07/21/25 03:45 74 19 100/54 (69) 93 07/21/25 03:30 74 18 97/54 (68) 93 07/21/25 03:15 77 18 98/49 (65) 94 07/21/25 03:00 76 14 98/50 (66) 95 07/21/25 02:45 77 19 95/52 (66) 90 07/21/25 02:30 77 19 86/46 (59) 94 07/21/25 02:15 77 18 95/48 (64) 95 07/21/25 02:00 79 17 110/56 (74) 95 07/21/25 01:45 78 18 98/52 (67) 94 07/21/25 01:30 82 17 93/46 (62) 94 07/21/25 01:15 85 18 91/50 (64) 91 07/21/25 01:00 87 15 99/55 (70) 91 07/21/25 00:45 93 19 91/43 (59) 93 07/21/25 00:30 109 20 97/50 (66) 91 07/21/25 00:15 86 18 99/49 (66) 93 LABS: Hematology Labs: Test 07/21/25 05:02 07/20/25 15:31 Range/Units White Blood Count 4.9 # 4.8-10.8 K/uL Red Blood Count 3.30 L 4.00-5.50 MIL/uL Hemoglobin 9.4 L 12.0-16.0 g/dL Hematocrit 29.1 L 36-48 % Mean Corpuscular Volume 88.2 79-99 fL Mean Corpuscular Hemoglobin 28.5 27.0-33.0 pg Mean Corpuscular Hemoglobin Concent 32.3 32.0-36.0 g/dL Red Cell Distribution Width 15.8 H 11.0-15.5 % Platelet Count 233 130-400 K/uL Mean Platelet Volume 9.1 7.5-10.5 fL Nucleated Red Blood Cells 0.0 0.0-0.19 % Immature Granulocyte % (Auto) 1.6 H 0-1 % Neutrophils (%) (Auto) 62.4 40.0-77.0 % Lymphocytes (%) (Auto) 20.4 L 21.0-51.0 % Monocytes (%) (Auto) 14.6 H 3.0-13.0 % Eosinophils (%) (Auto) 0.9 0.0-8.0 % Basophils (%) (Auto) 0.1 0.0-5.0 % Neutrophils # (Auto) 4.2 1.8-7.7 K/uL Lymphocytes # (Auto) 1.4 1.0-4.8 K/uL Monocytes # (Auto) 1.0 0.1-1.0 K/uL Eosinophils # (Auto) 0.06 0.00-0.70 K/uL Basophils # (Auto) 0.01 0.00-0.20 K/uL Absolute Immature Granulocyte (auto 0.11 0-1 K/uL Chemistry Labs: Test 07/21/25 06:49 07/21/25 05:02 07/20/25 19:43 07/20/25 15:31 Range/Units Whole Blood Glucose 158 H 70-110 MG/DL Sodium Level 137 136-145 mmol/L Potassium Level 4.7 3.5-5.1 mmol/L Chloride Level 104 101-111 mmol/L Carbon Dioxide Level 21 21-32 mmol/L Blood Urea Nitrogen 41 H 7-18 mg/dL Creatinine 2.7 H 0.5-1.0 mg/dL Glomerular Filtration Rate Calc 19 >90 mL/min Random Glucose 147 H 70-105 mg/dL Total Calcium 8.3 L 8.5-10.1 mg/dL Phosphorus Level 4.3 2.5-4.9 mg/dL Magnesium Level 2.00 1.80-2.40 mg/dL Thyroid Stimulating Hormone (TSH) 0.41 # 0.36-3.74 uIU/mL Lactic Acid Level 4.0 H 0.8-2.5 mmol/L Troponin I High Sensitivity < 4 L 4-50 ng/L Lipase 145 H 16-77 U/L DIAGNOSTICS / RADIOLOGY RESULTS: [ ][place] [address] [place] [address] [id number] IMAGING REPORT Signed PATIENT: YAMILET RUBIO MR#: [id number] : 1955 SEX: F AGE: 69 LOCATION: [facility] ORDER 1232 STATUS: ADM IN REPORT#: [id number] SERVICE 1231 REASON: sepsis ORDERING PHYSICIAN: TODD MILLARD PROCEDURE: CXR1VW - CHEST 1VW EXAM: CR Chest, 1 View. CLINICAL HISTORY: sepsis COMPARISON: July 09, 2025 FINDINGS: LUNGS: There is no mass, infiltrate, or acute pulmonary abnormality. PLEURAL SPACES: No evidence of pleural effusion or pneumothorax. MEDIASTINUM: There is cardiomegaly with central line in the SVC BONES: No acute osseous abnormality. IMPRESSION: No acute cardiopulmonary pathology is evident. /[place] DICTATED BY: KRISTAN WELLER MD DATE: 07/21/251555 ELECTRONICALLY SIGNED BY: KRISTAN WELLER MD DATE: 07/21/251555 [facility] [address] [place] [id number] IMAGING REPORT Signed PATIENT: YAMILET RUBIO MR#: [id number] : 1955 SEX: F AGE: 69 LOCATION: [facility] ORDER 11 STATUS: ADM IN REPORT#: [id number] SERVICE 09 REASON: abd pain, anorexia, s/p ileostomy, septic shock ORDERING PHYSICIAN: YAMIL KHOURY PROCEDURE: ABD PEL WO - CT ABDOMEN/PELVIS W/O CONTRAST EXAM: CT Abdomen and Pelvis Without IV contrast CLINICAL HISTORY: abd pain, anorexia, s/p ileostomy, septic shock TECHNIQUE: Axial computed tomography images of the abdomen and pelvis without intravenous contrast. CONTRAST: No IV contrast. COMPARISON: July 09, 2025 FINDINGS: LUNG BASES: Minimal bibasilar infiltrates. No pleural effusions LIVER: Unremarkable. GALLBLADDER AND BILE DUCTS: The gallbladder appears within normal limits. No radioopaque gallstones are seen. No biliary ductal dilatation is evident. PANCREAS: Unremarkable. SPLEEN: Unremarkable. ADRENAL GLANDS: Unremarkable. KIDNEYS, URETERS, AND BLADDER: Bilateral renal cysts.. There is no hydronephrosis or hydroureter. No urinary calculi are seen. STOMACH AND BOWEL: Several dilated loops of small bowel identified. The terminal ileum is decompressed.. There may be a point of transition within the pelvis.. No evidence suggesting enteritis or colitis. Right lower quadrant ostomy is seen. Surgical clips are seen within the rectum with thickening of the presacral space. APPENDIX: No evidence of acute appendicitis on CT examination. PERITONEUM: No free fluid. No free air. LYMPH NODES: No lymphadenopathy is evident. REPRODUCTIVE: Unremarkable as visualized. VASCULATURE: No evidence of abdominal aortic aneurysm. BONES: No aggressive appearing osseous lesion. No acute osseous pathology evident. IMPRESSION: 1. Findings suggest low-grade distal small bowel obstruction, which was present previously but appears to be overall improved. /[place] DICTATED BY: KRISTAN WELLER MD DATE: 07/21/25137 ELECTRONICALLY SIGNED BY: KRISTAN WELLER MD DATE: 07/21/25137 PLAN Chest x-ray 1 L of NS bolus Repeat lactic acid Continue NS at 100 mL/hour Continue IV antibiotics with Zosyn Follow urine culture Wean Levophed as tolerated to maintain map above 65 Continue midodrine 10 mg p.o. 3 times a day Follow Nephrology recommendations Consult patient's colorectal surgeon for eval and recommendations of output ostomy NEURO: Minimize central acting medications as possible. Fall Precautions. Well lighted room through the day and minimize interruptions through the night to prevent acute delirium. PULMONARY: Supplemental 02 as needed Titrate Fio2 to keep Spo2 > or = 90% DuoNebs and CPT as needed IS hourly while awake for pulmonary hygiene Out of bed to chair as tolerated CARDIOVASCULAR: Follow hemodynamics. Titrate vasopressor to keep MAP >65 or systolic blood pressure >95mmHg DIPS: Levophed LINES: PIV Right chest wall PermCath GI & NUTRITION: Continue nutritional support Aspirations precautions Prokinetic agents and laxatives as needed KIDNEYS & ELECTROLYTES: Strict monitoring of intake and output Daily weights Avoid nephrotoxic agents Monitor electrolytes and replace as needed Goal urine output of 30mL/hr or 0.5mL/kg/hr Urine output: [ ] Fluid Balance: [ ] ENDOCRINE: Maintain blood glucose between 100-180 at all times. Insulin sliding scale for blood glucose management INFECTIOUS DISEASE: Trend temperature. Marie-culture if febrile. Micro: [ ] Blood cultures Stool cultures Urine cultures Antibiotics: Zosyn HEMATOLOGY & COAGULATION: Monitor H&H. Keep Hgb > 7 Transfuse 1 unit of PRBC for Hgb < 7 Transfuse 1 pack of platelets of platelets < 20, 000 Watch for any signs and symptoms of bleeding SKIN: Pressure ulcer prevention per facility protocol Rehab: PT/OT Prophylaxis: GI: [Famotidine ] DVT: [Lovenox ] Code Status: Full Resuscitation Disposition: [ICU ] Other: Total patient care time exceeds 35 minutes excluding all procedures. Case was discussed and seen with my supervising physician. The above plan was formulated and agreed upon. ATTESTATION BY PHYSICIAN The patient has been seen and evaluated, the case has been discussed with the LEAD NURSE, I agree with the clinical findings and plan of care. TODD BRYANT MD Jul 21, 2025 08:02
[2025-07-21] MEDS: LOPERAMIDE HCL 2 MG CAP PO PRN (08:45)
[2025-07-21] MEDS: ENOXAPARIN SODIUM 40 MG/0.4 ML SYRINGE SQ SCH (09:26)
[2025-07-21] MEDS ORDERED: LOPERAMIDE 1 MG/7.5 ML UDCUP PO SCH (11:30)
[2025-07-21] MEDS: LOPERAMIDE HCL 2 MG CAP PO SCH (11:51)
[2025-07-21] MEDS: 0.9%NACL 1000ML 1,000 ML IV SCH (12:38)
[2025-07-21] MEDS ORDERED: 0.9%NACL 1000ML 1,000 ML IV SCH (13:31)
--- NOTE | 2025-07-21 14:30 | NUR ---
DCP: HOME Pt states her 2 sons lives at home with her. Pt reports se remains able to do her self care, cook, and maintain her home on her own. Pt drives self as needed.Pt pending approval for collette, has shower chair, no provider, [facility] or [facility]. PCP is Clare Thomas and uses [facility] for rx needs.discussed dc needs, pt does not feel she needs SNF, states she wants to return home at dc Addendum: 07/21/25 at 1440 by CHANI MOJICA Amended: Links added.
--- NOTE | 2025-07-21 14:57 | HMCIMG ---
EXAM: CR Chest, 1 View. CLINICAL HISTORY: sepsis COMPARISON: July 09, 2025 FINDINGS: LUNGS: There is no mass, infiltrate, or acute pulmonary abnormality. PLEURAL SPACES: No evidence of pleural effusion or pneumothorax. MEDIASTINUM: There is cardiomegaly with central line in the SVC BONES: No acute osseous abnormality. IMPRESSION: No acute cardiopulmonary pathology is evident. /[place]
[2025-07-21 17:24] LABS: CREATININE,URINE RANDOM 62.7 mg/dL (30-135)
--- NOTE | 2025-07-21 18:23 | CONS ---
GASTROENTEROLOGY CONSULTATION NOTE Date of Consultation: Jul 21, 2025 Time of Consultation: 18:19 History of Present Illness: [This is a 69-year-old female patient with past medical history for rectal cancer who had completed VALERIE, type 2 diabetes, and hypertension who had undergone a robotic low anterior resection, with creation of diverting ileostomy, intraoperative flexible sigmoidoscopy on 07/01/2025. Patient had developed a postoperative ileus and was discharged on 07/15/2025. She now presented to the emergency room of having dizziness, lightheadedness and low blood pressures for the last week. ER report patient denied having nausea and vomiting. In ER patient reported having more than a 1000 mL of ileostomy output. CT of abdomen and pelvis findings suggest low-grade distal small bowel obstruction, improved from previous exam. Chest x-ray showing no acute cardiopulmonary pathology. Patient's WBC of 4.9, hemoglobin 9.4, hematocrit 29.1, platelets 233. Chemistries significant for BUN of 41, creatinine 2.7, glucose 147, calcium 8.3. Stool study negative for C diff. patient currently on Levophed drip at 0.1 mcg/kg/min, and midodrine 10mg t.i.d. we were consulted for high-output from ileostomy. On exam, patient is awake, alert, and oriented x 3 in no acute distress. Her respirations are unlabored. BBS are clear. Abdomen is soft and not distended with active bs. Ileostomy patent and with watery to small amount of oatmeal like succus. Patient reported feeling weak and sleepy since last week and progressively felt worse. POC discussed. Will begin lomotil ac and hs, Encourage patient to eat frequently as previously instructed and reinforced by MALIK Barker weapons specialist. All patient and daughter's questions were answered to their satisfaction and patient and daughters verbalized understanding and agreement. Review of Systems: CONSTITUTIONAL: No malaise or change in sensation of wellbeing. ENMT: No rhinorrhea, otorrhea, sinus pain, ear ache. CARDIOVASCULAR: No angina, palpitations, orthopnea or paroxysmal dyspnea. RESPIRATORY: No SOB. GASTROINTESTINAL: No abdominal pain, nausea, vomiting, diarrhea, hematemesis, melena or change in the patient's habitual bowel movements consistency/number. GENITOURINARY: No dysuria, hematuria or change in bladder continence. MUSCULOSKELETAL: No new muscle pain or decrease in muscular strength. No new joint swelling, redness or tenderness. SKIN: No new rash. Past Medical History: Coded Allergies: No Known Drug Allergies (Unverified Allergy, Unknown, 11/10/24) Physical Exam: GEN: Awake, alert, oriented in person, time and place, and in no acute distress. HEENT: No rhinorrhea. Oral mucosa is pink, moist and within normal limits. CHEST: Lung auscultation revealed normal breath sounds bilaterally. CARDIAC:Heart sounds are regular. ABD: Soft, non-tender and not distended. No peritoneal signs on palpation. Normal bowel sounds. Ileostomy with watery to oatmeal like output. EXT: No cyanosis or clubbing. No edema. SKIN: Intact. No rashes. NEURO: Alert and oriented to name, place and person.No focal motor deficits. Normal speech. Vital Sign (Last 24 Hours) 07/21/25 07/21/25 07/21/25 08:00 08:15 09:30 Temp 98.1 Pulse 82 Resp 12 B/P (MAP) 103/52 (69) Pulse Ox 95 O2 Delivery Room Air* O2 Flow Rate 0 FiO2 21 Intake & Output (last 24hrs) 07/20/25 07/20/25 07/21/25 15:00 23:00 07:00 Intake Total 345.0 ml 970.0 ml Output Total 2400 ml Balance 345.0 ml -1430.0 ml Laboratory: [ ] Laboratory: Test 07/21/25 16:25 07/21/25 16:15 07/21/25 16:13 07/21/25 05:02 Range/Units Urine Random Creatinine 62.70 30-135 mg/dL Urine Random Sodium 61 40-220 mmol/l Lactic Acid Level 2.5 0.8-2.5 mmol/L Whole Blood Glucose 105 70-110 MG/DL White Blood Count 4.9 # 4.8-10.8 K/uL Red Blood Count 3.30 L 4.00-5.50 MIL/uL Hemoglobin 9.4 L 12.0-16.0 g/dL Hematocrit 29.1 L 36-48 % Mean Corpuscular Volume 88.2 79-99 fL Mean Corpuscular Hemoglobin 28.5 27.0-33.0 pg Mean Corpuscular Hemoglobin Concent 32.3 32.0-36.0 g/dL Red Cell Distribution Width 15.8 H 11.0-15.5 % Platelet Count 233 130-400 K/uL Mean Platelet Volume 9.1 7.5-10.5 fL Nucleated Red Blood Cells 0.0 0.0-0.19 % Sodium Level 137 136-145 mmol/L Potassium Level 4.7 3.5-5.1 mmol/L Chloride Level 104 101-111 mmol/L Carbon Dioxide Level 21 21-32 mmol/L Blood Urea Nitrogen 41 H 7-18 mg/dL Creatinine 2.7 H 0.5-1.0 mg/dL Glomerular Filtration Rate Calc 19 >90 mL/min Random Glucose 147 H 70-105 mg/dL Total Calcium 8.3 L 8.5-10.1 mg/dL Phosphorus Level 4.3 2.5-4.9 mg/dL Magnesium Level 2.00 1.80-2.40 mg/dL Thyroid Stimulating Hormone (TSH) 0.41 # 0.36-3.74 uIU/mL Test 07/21/25 00:51 07/20/25 20:10 07/20/25 17:52 07/20/25 15:31 Range/Units Blood Gas Specimen Type Arterial Arterial Blood pH 7.424 7.350-7.450 Arterial Blood Partial Pressure CO2 34 32-45 mmHg Arterial Blood Partial Pressure O2 66.8 L 83.0-108.0 mmHg Arterial Blood HCO3 21.7 21.0-28.0 mmol/L Arterial Blood Oxygen Saturation 91.8 L 94.0-98.0 % Arterial Blood Base Excess -2.1 L -2.0-3.0 mmol/L Hemoglobin (Blood Gas) 11.5 L 12.0-16.0 g/dL Sodium (Blood Gas) 133 L 136-145 MMOL/L Bedside Potassium (Blood Gas) 4.7 H 3.4-4.5 MMOL/L Bedside Chloride (Blood Gas) 103 98-107 MMOL/L Bedside Glucose (Blood Gas) 156 H 65-95 MG/DL Bedside Ionized Calcium (Blood Gas) 1.11 L 1.15-1.33 MMOL/L Bedside Lactic Acid (Blood Gas) 1.53 H 0.36-0.75 MMOL/L Blood Gas Temperature 37.0 35.5-37.0 CELSIUS Blood Gas Vent Mode RA ROOM AIR FiO2 21.0 % Blood Gas Specimen Comment RB,WASTEWATER PROCESS ENGINEER YAMIL C. difficile Antigen and Toxins A,B See comments NEG Urine Color LIGHT-YELLOW YELLOW Urine Appearance CLEAR CLEAR Urine pH 7.0 5.0-8.0 Urine Specific [place] 1.007 1.001-1.031 Urine Protein NEGATIVE NEGATIVE mg/dL Urine Glucose (UA) NEGATIVE NEGATIVE mg/dL Urine Ketones NEGATIVE NEGATIVE mg/dL Urine Occult Blood NEGATIVE NEGATIVE Urine Nitrate NEGATIVE NEGATIVE Urine Bilirubin NEGATIVE NEGATIVE mg/dL Urine Urobilinogen 0.2 0.2-1.0 mg/dL Urine Leukocyte Esterase 25 H NEGATIVE Marquez/uL Urine RBC 0-1 0-1 /HPF Urine WBC 6-10 H 0-1 /HPF Urine WBC Clumps (Auto) RARE 0-1 /HPF Urine Squamous Epithelial Cells RARE 0-2 /HPF Urine Bacteria RARE None Seen /HPF Urine Other Casts 1 None Seen /LPF Immature Granulocyte % (Auto) 1.6 H 0-1 % Neutrophils (%) (Auto) 62.4 40.0-77.0 % Lymphocytes (%) (Auto) 20.4 L 21.0-51.0 % Monocytes (%) (Auto) 14.6 H 3.0-13.0 % Eosinophils (%) (Auto) 0.9 0.0-8.0 % Basophils (%) (Auto) 0.1 0.0-5.0 % Neutrophils # (Auto) 4.2 1.8-7.7 K/uL Lymphocytes # (Auto) 1.4 1.0-4.8 K/uL Monocytes # (Auto) 1.0 0.1-1.0 K/uL Eosinophils # (Auto) 0.06 0.00-0.70 K/uL Basophils # (Auto) 0.01 0.00-0.20 K/uL Absolute Immature Granulocyte (auto 0.11 0-1 K/uL Troponin I High Sensitivity < 4 L 4-50 ng/L Lipase 145 H 16-77 U/L Current Medications Medications (Trade) Dose Ordered Sig/Evelyne Route PRN Reason Start Time Stop Time Status Last Admin Dose Admin Acetaminophen (TYLenol 325MG TAB) 650 mg Q6H PRN PO FEVER/MILD PAIN LEVEL 1-3 07/20/25 20:30 08/19/25 20:29 Acetaminophen (TYLenol 650MG SUPPOSITORY) 650 mg Q6H PRN RC FEVER / MILD PAIN 1-3 IF NPO 07/20/25 20:30 08/19/25 20:29 Enoxaparin Sodium (Lovenox) 40 mg DAILY SQ 07/21/25 09:00 08/20/25 08:59 07/21/25 09:26 40 MG Famotidine (Pepcid 20mg Tab) 20 mg Q48H PO 07/20/25 21:00 08/19/25 20:59 07/20/25 20:44 20 MG Insulin Human Regular (humuLIN R 100 UNIT/ML 3ML) INSULIN SLIDING SCAL... ACHS SQ 07/20/25 21:00 08/19/25 20:59 07/21/25 11:46 4 UNIT Loperamide HCl (Immodium Liquid) 2 mg ACHS PO 07/21/25 11:30 07/21/25 11:48 DC Loperamide HCl (Imodium) 2 mg ACHS PO 07/21/25 11:50 08/20/25 11:29 07/21/25 16:20 2 MG Loperamide HCl (Imodium) 2 mg AD PRN PO AFTER EACH LOOSE STOOL 07/21/25 08:30 07/21/25 10:37 DC 07/21/25 08:45 2 MG Midodrine (PROAMatine 5 MG TABLET) 10 mg TID PO 07/20/25 20:00 08/19/25 19:59 07/21/25 14:42 10 MG Norepinephrine 250 ml @ 29.925 mls/ hr PROTOCOL IV 07/20/25 19:00 08/19/25 18:59 07/21/25 06:47 14.963 MLS/HR Ondansetron HCl (zoFRAN 4MG INJ) 4 mg Q6H PRN IVP NAUSEA/VOMITING 07/20/25 20:30 08/19/25 20:29 Piperacillin Sod/ Tazobactam Sod 50 ml @ 200 mls/hr ONCE STAT IVPB 07/20/25 16:01 07/20/25 16:15 DC 07/20/25 16:10 200 MLS/HR Piperacillin Sod/ Tazobactam Sod (Zosyn 3.375gm+NS 50ml) 3.375 gm Q12H IVPB 07/21/25 02:00 07/31/25 01:59 07/21/25 14:45 3.375 GM Sodium Chloride 0 ml @ 999 mls/hr Q0M IV 07/21/25 12:30 07/21/25 16:06 999 MLS/HR Sodium Chloride 1,000 ml @ 0 mls/hr Q0M IV 07/21/25 13:31 08/20/25 13:30 Sodium Chloride 1,000 ml @ 150 mls/hr Q6H40M IV 07/20/25 20:30 08/19/25 20:29 07/21/25 16:16 150 MLS/HR Sodium Chloride (NS 50ml) 50 ml AD IV 07/20/25 23:10 07/21/25 11:48 DC Temazepam (restORIL 15 MG CAP) 15 mg HS PRN PO INSOMNIA/SLEEP 07/20/25 20:30 08/19/25 20:29 Diagnostics / Radiology: [COPY/PASTE HERE IF NO REPORTS PLEASE DELETE SECTION] Assessment: [Ileostomy status Dehydration Hypotension Type 2 diabetes History of rectal cancer status post surgical resection ] Plan: [Case discussed with GI and Colorectal team Recommend Lomotil one tab p.o. a.c. and HS. to maintain oatmeal like ileostomy output consistency Recommend patient remain on IV hydration. Monitor ileostomy output and report any output greater than 1000 mL 24 hours Recommend patient eat 3 meals and 3 snacks to aid in output consistency Please call with questions, concerns, and change in clinical status Thank you for allowing us to be part of this patient's care.] GALINA NIXON Jul 21, 2025 18:23
[2025-07-21] MEDS: DIPHENOXYLATE HCL/ATROPINE 2.5/0.025 MG TAB PO SCH (21:28)
[2025-07-22] VITALS (58 sets, daily range): BP systolic 86–143; BP diastolic 42–74; PULSE 52–82; RESP 13–24; TEMP 98–98.6; O2SAT 93–97
[2025-07-22 05:52] LABS: IMMATURE GRANULOCYTE ABSOLUTE 0.07 K/uL (0-1); NUCLEATED RED BLOOD CELLS 0.0 % (0.0-0.19); PLATELET COUNT (AUTO) 166 K/uL (130-400); RED BLOOD CELL COUNT(AUTO) 3.05 MIL/uL (4.00-5.50); RED CELL DISTRIBUTION WIDTH 16.0 % (11.0-15.5); WHITE BLOOD COUNT (AUTO) 5.3 K/uL (4.8-10.8)
[2025-07-22 06:04] LABS: CREATININE 1.2 mg/dL (0.5-1.0); GLOMERULAR FILTR. RATE CALC 49.0 mL/min (>90); GLUCOSE,RANDOM 144.0 mg/dL (70-105); SODIUM SERUM 140.0 mmol/L (136-145); UREA NITROGEN, BLOOD 17.0 mg/dL (7-18)
[2025-07-22 06:07] LABS: % IRON SATURATION 19.1 % (22-44); IRON, SERUM 37.0 mcg/dL (50-170)
[2025-07-22] MEDS: MAGNESIUM 2GM PREMIX 50ML 50 ML IV PRN (06:18)
--- NOTE | 2025-07-22 08:00 | CONS ---
REFERRING PHYSICIAN: Dr. Melendez. REASON FOR CONSULTATION: Renal failure. HISTORY OF PRESENT ILLNESS: A 69-year-old female with a history of mild hypertension. She has a history of known colon cancer, status post chemotherapy and radiation. Patient with a previous history of ileostomy. She presents to the hospital with complaints of generalized fatigue and dizziness. The patient was found to have significant hypotension and volume depletion. She was started on IV hydration and she has become more hemodynamically stable. Laboratory evaluation revealed an elevated BUN and creatinine and she is being seen in consultation for all of the above. PAST MEDICAL HISTORY: Mild hypertension, colon cancer. PAST SURGICAL HISTORY: Ileostomy. SOCIAL HISTORY: No tobacco use. FAMILY HISTORY: No renal disease in the family. ALLERGIES: There are no allergies. MEDICATIONS: All noted. REVIEW OF SYSTEMS: GENERAL: She is feeling somewhat improved. HEENT: No change in vision. No change in urine. CARDIOVASCULAR: No current chest pains or palpitations. PULMONARY: No shortness of breath. GASTROINTESTINAL: As described above. MUSCULOSKELETAL: Complains of weakness. PHYSICAL EXAMINATION: VITAL SIGNS: Blood pressure is 102/52, pulse is 88, she is afebrile. GENERAL: She is a chronically ill female, elderly, lying in bed on the medical floor. HEENT: Head is atraumatic. Pupils are equal, round, reactive to light. Oropharynx is without exudate. Nares clear. NECK: There is no JVP. There is no thyromegaly. No masses. CARDIOVASCULAR: Regular. There is no S3 or S4 gallop. LUNGS: Coarse with equal thoracic movement. ABDOMEN: Soft, nondistended, nontender. EXTREMITIES: Reveal no clubbing, no cyanosis. NEUROLOGICAL: She is awake. She is alert. She is oriented. SKIN: Reveals no rashes or nodules. BACK: There is no CVA tenderness. No back deformities. LABORATORY DATA: Hemoglobin 9.4, hematocrit 29, white cell count is 5000. Sodium 137, potassium 4.7, BUN 41, creatinine is 2.7, phosphorus 4.3. Urinalysis is noted. IMPRESSION: 1. Acute renal failure. 2. Volume depletion. 3. Electrolyte abnormalities. 4. Hypotension. 5. History of anemia. PLAN: The patient presents with acute renal failure in the face of significant volume depletion. We will give an additional 2 liters of normal saline and we will increase the IV fluids to 150 mL per hour. The patient has been started on a diet and we will continue to try to wean the pressors. The patient's electrolytes have all been aggressively repleted. She does have significant anemia. We will check iron levels for completeness. We will follow the patient closely. The patient's urine culture is noted and she is on antibiotics. All labs can be repeated in the morning. The patient and family at the bedside. All questions have been answered. TID: [id number] RECEIPT: [id number]
[2025-07-22] MEDS ORDERED: COMPOUND IV MISC 1 EACH IVSOLN MISC PRN (09:30)
[2025-07-22] MEDS ORDERED: COMPOUND IV REFRIGERATED 1 EACH IVSOLN MISC PRN (09:30)
--- NOTE | 2025-07-22 09:52 | PN ---
[facility] PROGRESS NOTE Date Patient Seen: Jul 22, 2025 Time of Visit: 09:45 Supervising Physician:ZE PARRISH MD Primary Care Physician: LUIS BEARD MD Outpatient Specialists: [ ] Inpatient Consults: [facility] PROBLEM LIST: Septic shock likely from acute complicated cystitis POA requiring pressors Acute complicated cystitis, POA Prerenal CHANCE on CKD, POA, improving Severe dehydration from high output ileostomy, POA Electrolyte derangement hyperkalemia, hypochloremia, hyponatremia. Mild Pancreatitis Elevated lactic acid, POA Hyperglycemia in the presence of type 2 diabetes mellitus, POA Chronic anemia likely from CKD Chronic problem list/history: Rectal cancer status post low anterior resection, robotic creation of diverting ileostomy Hyperlipidemia Diabetes mellitus type two with hyperglycemia INTERVAL HISTORY: No major overnight events. Currently on NS at 150 mL/hour hemodynamically stable with a blood pressure 120/58 heart rate in the 60s respiratory rate of 12 saturating 97%. She is in no apparent respiratory distress at room air. H&H is stable 8.6/28.2 Platelet count is normal 166 K. chemistries shows improved kidneys creatinine of 1.2 GFR of 49 CO2 of 20. GFR of 49 magnesium of 1.70 patient is growing Klebsiella pneumoniae in the urine. Susceptible to Zosyn. She is off pressors. No complains at this time. REVIEW OF SYSTEMS: 12 point ROS reviewed with patient. Pertinent positives mentioned above. Otherwise negative. PHYSICAL EXAM: GENERAL: alert, weak, awake oriented x 3 HEENT: EOMI, Sclera non icteric, moist mucosa NECK: Supple, no JVD, trachea midline LUNGS: Clear breath sounds bilaterally. No wheezes HEART: Regular rate and rhythm. Normal S1 and S2, without murmurs. Right chest PermCath ABD: Obese Abdomen soft, nontender. Bowel sounds present. colostomy Urinary: Coronado catheter in place EXT: No clubbing cyanosis or edema NEURO: Alert and oriented to person, follows commands Vital Signs (last 8hr) Date Time Temp Pulse Resp B/P (MAP) Pulse Ox O2 Delivery O2 Flow Rate FiO2 07/22/25 08:00 98.1 Room Air 07/22/25 07:00 62 17 108/51 (70) 94 21 07/22/25 06:45 55 17 95/49 (64) 94 07/22/25 06:30 57 16 95/47 (63) 94 07/22/25 06:15 67 19 106/63 (77) 94 07/22/25 06:00 56 15 96/45 (62) 96 21 07/22/25 05:45 57 14 101/47 (65) 94 07/22/25 05:30 57 16 92/47 (62) 94 07/22/25 05:15 61 16 96/43 (60) 93 07/22/25 05:00 76 17 101/52 (68) 95 21 07/22/25 04:45 70 19 143/60 (87) 96 07/22/25 04:30 72 16 127/59 (81) 92 07/22/25 04:15 58 17 99/48 (65) 93 07/22/25 04:00 93 Room Air* 0 21 07/22/25 04:00 98.6 62 17 90/45 (60) 94 21 07/22/25 04:00 98.6 Room Air 21 07/22/25 03:45 55 18 136/62 (86) 93 07/22/25 03:30 52 15 128/56 (80) 96 07/22/25 03:15 58 17 86/42 (57) 95 07/22/25 03:00 59 17 99/48 (65) 95 21 07/22/25 02:45 56 14 107/51 (69) 96 07/22/25 02:30 58 21 101/50 (67) 95 07/22/25 02:15 54 17 116/54 (74) 95 07/22/25 02:00 57 19 110/53 (72) 95 21 LABS: Hematology Labs: Test 07/22/25 05:14 Range/Units White Blood Count 5.3 4.8-10.8 K/uL Red Blood Count 3.05 L 4.00-5.50 MIL/uL Hemoglobin 8.6 L 12.0-16.0 g/dL Hematocrit 28.2 L 36-48 % Mean Corpuscular Volume 92.5 79-99 fL Mean Corpuscular Hemoglobin 28.2 27.0-33.0 pg Mean Corpuscular Hemoglobin Concent 30.5 L 32.0-36.0 g/dL Red Cell Distribution Width 16.0 H 11.0-15.5 % Platelet Count 166 # 130-400 K/uL Mean Platelet Volume 9.1 7.5-10.5 fL Immature Granulocyte % (Auto) 1.3 H 0-1 % Neutrophils (%) (Auto) 49.2 40.0-77.0 % Lymphocytes (%) (Auto) 27.3 21.0-51.0 % Monocytes (%) (Auto) 19.0 H 3.0-13.0 % Eosinophils (%) (Auto) 2.6 0.0-8.0 % Basophils (%) (Auto) 0.6 0.0-5.0 % Neutrophils # (Auto) 2.6 1.8-7.7 K/uL Lymphocytes # (Auto) 1.5 1.0-4.8 K/uL Monocytes # (Auto) 1.0 0.1-1.0 K/uL Eosinophils # (Auto) 0.14 0.00-0.70 K/uL Basophils # (Auto) 0.03 0.00-0.20 K/uL Absolute Immature Granulocyte (auto 0.07 0-1 K/uL Nucleated Red Blood Cells 0.0 0.0-0.19 % White Cell Morphology Comment See comments Red Blood Cell Morphology See comments Chemistry Labs: Test 07/22/25 05:14 07/21/25 21:35 07/21/25 16:15 07/21/25 05:02 Range/Units Sodium Level 140 136-145 mmol/L Potassium Level 4.9 3.5-5.1 mmol/L Chloride Level 111 101-111 mmol/L Carbon Dioxide Level 20 L 21-32 mmol/L Blood Urea Nitrogen 17 7-18 mg/dL Creatinine 1.2 H 0.5-1.0 mg/dL Glomerular Filtration Rate Calc 49 >90 mL/min Random Glucose 144 H 70-105 mg/dL Total Calcium 8.2 L 8.5-10.1 mg/dL Magnesium Level 1.70 L 1.80-2.40 mg/dL Iron Level 37 L 50-170 mcg/dL Total Iron Binding Capacity 193 L 250-450 mcg/dL Percent Iron Saturation 19.1 L 22-44 % Lipase 43 16-77 U/L Whole Blood Glucose 159 #H 70-110 MG/DL Lactic Acid Level 2.5 0.8-2.5 mmol/L Phosphorus Level 4.3 2.5-4.9 mg/dL Thyroid Stimulating Hormone (TSH) 0.41 # 0.36-3.74 uIU/mL Test 07/20/25 15:31 Range/Units Troponin I High Sensitivity < 4 L 4-50 ng/L DIAGNOSTICS / RADIOLOGY RESULTS: [[facility] [address] [place] [address] IMAGING REPORT Signed PATIENT: YAMILET RUBIO MR#: [id number] : 1955 SEX: F AGE: 69 LOCATION: 2CH ORDER 1232 STATUS: ADM IN REPORT#: [id number] SERVICE 1231 REASON: sepsis ORDERING PHYSICIAN: TODD MILLARD PROCEDURE: CXR1VW - CHEST 1VW EXAM: CR Chest, 1 View. CLINICAL HISTORY: sepsis COMPARISON: July 09, 2025 FINDINGS: LUNGS: There is no mass, infiltrate, or acute pulmonary abnormality. PLEURAL SPACES: No evidence of pleural effusion or pneumothorax. MEDIASTINUM: There is cardiomegaly with central line in the SVC BONES: No acute osseous abnormality. IMPRESSION: No acute cardiopulmonary pathology is evident. /[place] DICTATED BY: KRISTAN WELLER MD DATE: 07/21/251555 ELECTRONICALLY SIGNED BY: KRISTAN WELLER MD DATE: 07/21/251555 ] PLAN change IVF to LR at 100 ml/hr follow DIANA closely Daily weight off pressors. deescalate abx to Rocephin fiber supplement. Follow urine culture Downgrade to M/S tele Continue midodrine 10 mg p.o. 3 times a day Follow Nephrology recommendations Consult patient's colorectal surgeon for eval and recommendations of output ostomy NEURO: Minimize central acting medications as possible. Fall Precautions. Well lighted room through the day and minimize interruptions through the night to prevent acute delirium. PULMONARY: Supplemental 02 as needed Titrate Fio2 to keep Spo2 > or = 90% DuoNebs and CPT as needed IS hourly while awake for pulmonary hygiene Out of bed to chair as tolerated CARDIOVASCULAR: Follow hemodynamics. Titrate vasopressor to keep MAP >65 or systolic blood pressure >95mmHg DIPS: Levophed off LINES: PIV Right chest wall PermCath GI & NUTRITION: Continue nutritional support Aspirations precautions Prokinetic agents and laxatives as needed KIDNEYS & ELECTROLYTES: Strict monitoring of intake and output Daily weights Avoid nephrotoxic agents Monitor electrolytes and replace as needed Goal urine output of 30mL/hr or 0.5mL/kg/hr Urine output: [ ] Fluid Balance: [ ] ENDOCRINE: Maintain blood glucose between 100-180 at all times. Insulin sliding scale for blood glucose management INFECTIOUS DISEASE: Trend temperature. Marie-culture if febrile. Micro: [ ] Blood cultures Stool cultures Urine cultures Antibiotics: Zosyn HEMATOLOGY & COAGULATION: Monitor H&H. Keep Hgb > 7 Transfuse 1 unit of PRBC for Hgb < 7 Transfuse 1 pack of platelets of platelets < 20, 000 Watch for any signs and symptoms of bleeding SKIN: Pressure ulcer prevention per facility protocol Rehab: PT/OT Prophylaxis: GI: [Famotidine ] DVT: [Lovenox ] Code Status: Full Resuscitation Disposition: Downgrade to M/S tele Other: ATTESTATION BY PHYSICIAN I attest that I reviewed and discussed the case with the Physician Project Coordinator as w ell as agree with the Physician Project Coordinator's findings, plans of care, and documentation above. Ze Mckinney MD, [facility] Jul 22, 2025 09:51
[2025-07-22] MEDS: LACTATED RINGERS 1000ML 1,000 ML IV SCH (10:03)
--- NOTE | 2025-07-22 10:14 | PN ---
GASTROENTEROLOGY PROGRESS NOTE Date of Visit: Jul 22, 2025 Time of Visit: 10:12 Events / Notes: [ Patient remains afebrile. Bps are holding with levophed 0.1mcg, and midodrine 10mg tid. Patient started on Lomotil last night. She continues on Zosyn b.i.d. Patient has had a total of 1500 mL of ileostomy output in the past 24 hours. WBC of 5.3, hemoglobin 8.6, hematocrit 22, platelets 166. BUN of 17, creatinine improved, now at 1.2. Glucose 144, calcium 8.2, magnesium 1.70. Iron of 37, TIBC 193 with 19.1% saturation. Lipase 43. ] Review of Systems: CONSTITUTIONAL: No malaise or change in sensation of wellbeing. ENMT: No rhinorrhea, otorrhea, sinus pain, ear ache. CARDIOVASCULAR: No angina, palpitations, orthopnea or paroxysmal dyspnea. RESPIRATORY: No SOB. GASTROINTESTINAL: No abdominal pain, nausea, vomiting, diarrhea, hematemesis, melena or change in the patient's habitual bowel movements consistency/number. GENITOURINARY: No dysuria, hematuria or change in bladder continence. MUSCULOSKELETAL: No new muscle pain or decrease in muscular strength. No new joint swelling, redness or tenderness. SKIN: No new rash. Physical Exam: GEN: Awake, alert, oriented in person, time and place, and in no acute distress. HEENT: No rhinorrhea. Oral mucosa is pink, moist and within normal limits. CHEST: Lung auscultation revealed normal breath sounds bilaterally. CARDIAC:Heart sounds are regular. ABD: Soft, non-tender and not distended. No peritoneal signs on palpation. Normal bowel sounds. Ileostomy with watery to oatmeal like output. EXT: No cyanosis or clubbing. No edema. SKIN: Intact. No rashes. NEURO: Alert and oriented to name, place and person.No focal motor deficits. Normal speech. Vital Signs (last 8hr) Date Time Temp Pulse Resp B/P (MAP) Pulse Ox O2 Delivery O2 Flow Rate FiO2 07/22/25 09:30 64 15 105/49 (67) 95 07/22/25 09:15 73 17 105/56 (72) 95 07/22/25 09:00 70 19 104/55 (71) 94 07/22/25 08:45 69 16 106/50 (68) 95 07/22/25 08:30 72 19 112/58 (76) 96 07/22/25 08:15 74 13 114/62 (79) 97 07/22/25 08:00 98.1 69 15 115/53 (73) 97 07/22/25 08:00 98.1 Room Air 07/22/25 07:45 65 19 121/61 (81) 96 07/22/25 07:15 67 19 119/52 (74) 97 07/22/25 07:00 62 17 108/51 (70) 94 21 07/22/25 06:45 55 17 95/49 (64) 94 07/22/25 06:30 57 16 95/47 (63) 94 07/22/25 06:15 67 19 106/63 (77) 94 07/22/25 06:00 56 15 96/45 (62) 96 21 07/22/25 05:45 57 14 101/47 (65) 94 07/22/25 05:30 57 16 92/47 (62) 94 07/22/25 05:15 61 16 96/43 (60) 93 07/22/25 05:00 76 17 101/52 (68) 95 21 07/22/25 04:45 70 19 143/60 (87) 96 07/22/25 04:30 72 16 127/59 (81) 92 07/22/25 04:15 58 17 99/48 (65) 93 07/22/25 04:00 93 Room Air* 0 21 07/22/25 04:00 98.6 62 17 90/45 (60) 94 21 07/22/25 04:00 98.6 Room Air 21 07/22/25 03:45 55 18 136/62 (86) 93 07/22/25 03:30 52 15 128/56 (80) 96 07/22/25 03:15 58 17 86/42 (57) 95 07/22/25 03:00 59 17 99/48 (65) 95 21 07/22/25 02:45 56 14 107/51 (69) 96 07/22/25 02:30 58 21 101/50 (67) 95 07/22/25 02:15 54 17 116/54 (74) 95 Laboratory: [ ] Laboratory: Test 07/22/25 05:14 07/21/25 21:35 07/21/25 16:25 07/21/25 16:15 Range/Units White Blood Count 5.3 4.8-10.8 K/uL Red Blood Count 3.05 L 4.00-5.50 MIL/uL Hemoglobin 8.6 L 12.0-16.0 g/dL Hematocrit 28.2 L 36-48 % Mean Corpuscular Volume 92.5 79-99 fL Mean Corpuscular Hemoglobin 28.2 27.0-33.0 pg Mean Corpuscular Hemoglobin Concent 30.5 L 32.0-36.0 g/dL Red Cell Distribution Width 16.0 H 11.0-15.5 % Platelet Count 166 # 130-400 K/uL Mean Platelet Volume 9.1 7.5-10.5 fL Immature Granulocyte % (Auto) 1.3 H 0-1 % Neutrophils (%) (Auto) 49.2 40.0-77.0 % Lymphocytes (%) (Auto) 27.3 21.0-51.0 % Monocytes (%) (Auto) 19.0 H 3.0-13.0 % Eosinophils (%) (Auto) 2.6 0.0-8.0 % Basophils (%) (Auto) 0.6 0.0-5.0 % Neutrophils # (Auto) 2.6 1.8-7.7 K/uL Lymphocytes # (Auto) 1.5 1.0-4.8 K/uL Monocytes # (Auto) 1.0 0.1-1.0 K/uL Eosinophils # (Auto) 0.14 0.00-0.70 K/uL Basophils # (Auto) 0.03 0.00-0.20 K/uL Absolute Immature Granulocyte (auto 0.07 0-1 K/uL Nucleated Red Blood Cells 0.0 0.0-0.19 % White Cell Morphology Comment See comments Red Blood Cell Morphology See comments Sodium Level 140 136-145 mmol/L Potassium Level 4.9 3.5-5.1 mmol/L Chloride Level 111 101-111 mmol/L Carbon Dioxide Level 20 L 21-32 mmol/L Blood Urea Nitrogen 17 7-18 mg/dL Creatinine 1.2 H 0.5-1.0 mg/dL Glomerular Filtration Rate Calc 49 >90 mL/min Random Glucose 144 H 70-105 mg/dL Total Calcium 8.2 L 8.5-10.1 mg/dL Magnesium Level 1.70 L 1.80-2.40 mg/dL Iron Level 37 L 50-170 mcg/dL Total Iron Binding Capacity 193 L 250-450 mcg/dL Percent Iron Saturation 19.1 L 22-44 % Lipase 43 16-77 U/L Whole Blood Glucose 159 #H 70-110 MG/DL Urine Random Creatinine 62.70 30-135 mg/dL Urine Random Sodium 61 40-220 mmol/l Lactic Acid Level 2.5 0.8-2.5 mmol/L Test 07/21/25 05:02 07/21/25 00:51 07/20/25 20:10 07/20/25 17:52 Range/Units Phosphorus Level 4.3 2.5-4.9 mg/dL Thyroid Stimulating Hormone (TSH) 0.41 # 0.36-3.74 uIU/mL Blood Gas Specimen Type Arterial Arterial Blood pH 7.424 7.350-7.450 Arterial Blood Partial Pressure CO2 34 32-45 mmHg Arterial Blood Partial Pressure O2 66.8 L 83.0-108.0 mmHg Arterial Blood HCO3 21.7 21.0-28.0 mmol/L Arterial Blood Oxygen Saturation 91.8 L 94.0-98.0 % Arterial Blood Base Excess -2.1 L -2.0-3.0 mmol/L Hemoglobin (Blood Gas) 11.5 L 12.0-16.0 g/dL Sodium (Blood Gas) 133 L 136-145 MMOL/L Bedside Potassium (Blood Gas) 4.7 H 3.4-4.5 MMOL/L Bedside Chloride (Blood Gas) 103 98-107 MMOL/L Bedside Glucose (Blood Gas) 156 H 65-95 MG/DL Bedside Ionized Calcium (Blood Gas) 1.11 L 1.15-1.33 MMOL/L Bedside Lactic Acid (Blood Gas) 1.53 H 0.36-0.75 MMOL/L Blood Gas Temperature 37.0 35.5-37.0 CELSIUS Blood Gas Vent Mode RA ROOM AIR FiO2 21.0 % Blood Gas Specimen Comment RB,[employer] YAMIL C. difficile Antigen and Toxins A,B See comments NEG Urine Color LIGHT-YELLOW YELLOW Urine Appearance CLEAR CLEAR Urine pH 7.0 5.0-8.0 Urine Specific [place] 1.007 1.001-1.031 Urine Protein NEGATIVE NEGATIVE mg/dL Urine Glucose (UA) NEGATIVE NEGATIVE mg/dL Urine Ketones NEGATIVE NEGATIVE mg/dL Urine Occult Blood NEGATIVE NEGATIVE Urine Nitrate NEGATIVE NEGATIVE Urine Bilirubin NEGATIVE NEGATIVE mg/dL Urine Urobilinogen 0.2 0.2-1.0 mg/dL Urine Leukocyte Esterase 25 H NEGATIVE [place]quez/uL Urine RBC 0-1 0-1 /HPF Urine WBC 6-10 H 0-1 /HPF Urine WBC Clumps (Auto) RARE 0-1 /HPF Urine Squamous Epithelial Cells RARE 0-2 /HPF Urine Bacteria RARE None Seen /HPF Urine Other Casts 1 None Seen /LPF Test 07/20/25 15:31 Range/Units Troponin I High Sensitivity < 4 L 4-50 ng/L Current Medications Medications (Trade) Dose Ordered Sig/Evelyne Route PRN Reason Start Time Stop Time Status Last Admin Dose Admin Acetaminophen (TYLenol 325MG TAB) 650 mg Q6H PRN PO FEVER/MILD PAIN LEVEL 1-3 07/20/25 20:30 08/19/25 20:29 Acetaminophen (TYLenol 650MG SUPPOSITORY) 650 mg Q6H PRN RC FEVER / MILD PAIN 1-3 IF NPO 07/20/25 20:30 08/19/25 20:29 Diphenoxylate HCl/ Atropine (Lomotil) 1 tab ACHS PO 07/21/25 21:00 08/20/25 20:59 07/22/25 06:16 1 TAB Enoxaparin Sodium (Lovenox) 40 mg DAILY SQ 07/21/25 09:00 08/20/25 08:59 07/22/25 08:14 40 MG Famotidine (Pepcid 20mg Tab) 20 mg Q48H PO 07/20/25 21:00 08/19/25 20:59 07/20/25 20:44 20 MG Insulin Human Regular (humuLIN R 100 UNIT/ML 3ML) INSULIN SLIDING SCAL... ACHS SQ 07/20/25 21:00 08/19/25 20:59 07/21/25 11:46 4 UNIT Lactated Ringer's 1,000 ml @ 100 mls/hr Q10H IV 07/22/25 10:00 08/21/25 09:59 07/22/25 10:03 100 MLS/HR Loperamide HCl (Immodium Liquid) 2 mg ACHS PO 07/21/25 11:30 07/21/25 11:48 DC Loperamide HCl (Imodium) 2 mg ACHS PO 07/21/25 11:50 07/21/25 19:54 DC 07/21/25 16:20 2 MG Loperamide HCl (Imodium) 2 mg AD PRN PO AFTER EACH LOOSE STOOL 07/21/25 08:30 07/21/25 10:37 DC 07/21/25 08:45 2 MG Magnesium Sulfate 50 ml @ 0 mls/hr PROTOCOL PRN IV Hypomagnesmia 07/22/25 06:30 08/21/25 06:29 07/22/25 06:18 25 MLS/HR Midodrine (PROAMatine 5 MG TABLET) 10 mg TID PO 07/20/25 20:00 08/19/25 19:59 07/22/25 08:11 10 MG Norepinephrine 250 ml @ 29.925 mls/ hr PROTOCOL IV 07/20/25 19:00 08/19/25 18:59 07/21/25 06:47 14.963 MLS/HR Ondansetron HCl (zoFRAN 4MG INJ) 4 mg Q6H PRN IVP NAUSEA/VOMITING 07/20/25 20:30 08/19/25 20:29 Piperacillin Sod/ Tazobactam Sod 50 ml @ 200 mls/hr ONCE STAT IVPB 07/20/25 16:01 07/20/25 16:15 DC 07/20/25 16:10 200 MLS/HR Piperacillin Sod/ Tazobactam Sod (Zosyn 3.375gm+NS 50ml) 3.375 gm Q12H IVPB 07/21/25 02:00 07/31/25 01:59 07/22/25 01:27 3.375 GM Sodium Chloride 0 ml @ 999 mls/hr Q0M IV 07/21/25 12:30 07/22/25 08:29 DC 07/21/25 16:06 999 MLS/HR Sodium Chloride 1,000 ml @ 0 mls/hr Q0M IV 07/21/25 13:31 07/22/25 08:29 DC Sodium Chloride 1,000 ml @ 150 mls/hr Q6H40M IV 07/20/25 20:30 07/22/25 09:50 DC 07/22/25 02:18 150 MLS/HR Sodium Chloride (NS 50ml) 50 ml AD IV 07/20/25 23:10 07/21/25 11:48 DC Temazepam (restORIL 15 MG CAP) 15 mg HS PRN PO INSOMNIA/SLEEP 07/20/25 20:30 08/19/25 20:29 Diagnostics / Radiology: [COPY/PASTE HERE IF NO REPORTS PLEASE DELETE SECTION] Assessment: [Ileostomy status Dehydration Hypotension Type 2 diabetes History of rectal cancer status post surgical resection ] Plan: [Case discussed with GI and Colorectal team Recommend Lomotil one tab p.o. a.c. and HS. to maintain oatmeal like ileostomy output consistency Recommend patient remain on IV hydration. Monitor ileostomy output and report any output greater than 1000 mL 24 hours Recommend patient eat 3 meals and 3 snacks to aid in output consistency Please call with questions, concerns, and change in clinical status Thank you for allowing us to be part of this patient's care.] GALINA NIXONP Jul 22, 2025 10:14
[2025-07-22] MEDS: PSYLLIUM SEED 1 EACH PACKET PO SCH (20:19)
--- NOTE | 2025-07-22 21:59 | PN ---
FOLLOWUP PROGRESS NOTE SUBJECTIVE: A 69-year-old female with a history of colon cancer in the past. The patient is status post ileostomy. She presented to the hospital with underlying sepsis. The patient with significant volume depleted. She remains on IV hydration. She has had acute renal failure in the hospital. Creatinine continues to improve. Urine output has been excellent with the IV hydration and the patient is being seen as a followup visit for all the above. REVIEW OF SYSTEMS: GENERAL: She is feeling improved. HEENT: No change in vision. No change in hearing. CARDIOVASCULAR: There are no current chest pains or palpitations. PULMONARY: There is no shortness of breath. GASTROINTESTINAL: She is tolerating a diet. MUSCULOSKELETAL: Complaints of weakness. PHYSICAL EXAMINATION: VITAL SIGNS: Blood pressure is 108/51. Pulse is 60. Afebrile. GENERAL: Chronically ill female, lying in bed on the medical floor. HEENT: Head is atraumatic. Her pupils equal, round and reactive to light. Oropharynx is without exudate. Nares are clear. NECK: There is no JVP. There is no thyromegaly. CARDIOVASCULAR: Regular. There is no S3 or S4 gallop. LUNGS: Coarse with equal thoracic movement. ABDOMEN: Obese. The ostomy is noted. EXTREMITIES: There is no edema. NEUROLOGICAL: She is awake. She is alert. She is oriented. SKIN: Reveals no rash or nodules. LABORATORY DATA: Sodium 140, potassium 4.9, BUN 17, creatinine 1.2. Iron levels are noted. Hemoglobin 8.6, hematocrit 28. IMPRESSION: Acute renal failure. Volume depletion. Sepsis. Persistent hypotension. electrolyte abnormalities. PLAN: The patient's renal function continues to improve. The patient remains on the IV hydration. She is being weaned from the pressors. She continues with midodrine for the hypotension. We will obtain a cortisol level in the a.m. for completeness. She does have significant anemia. Iron levels are noted. She will be given a one-time dose of IV Venofer. We will follow closely. All labs can be repeated in the a.m. TID: [id number] RECEIPT: [id number]
[2025-07-23] VITALS: BP 95/47; PULSE 61; RESP 16; TEMP 98.3
[2025-07-23 03:45] LABS: IMMATURE GRANULOCYTE ABSOLUTE 0.08 K/uL (0-1); NUCLEATED RED BLOOD CELLS 0.0 % (0.0-0.19); PLATELET COUNT (AUTO) 150 K/uL (130-400); RED BLOOD CELL COUNT(AUTO) 2.86 MIL/uL (4.00-5.50); RED CELL DISTRIBUTION WIDTH 15.9 % (11.0-15.5); WHITE BLOOD COUNT (AUTO) 5.0 K/uL (4.8-10.8)
[2025-07-23 04:00] VITALS: BP 133/56; PULSE 69; RESP 16; TEMP 98.4
[2025-07-23 04:01] LABS: CREATININE 1.1 mg/dL (0.5-1.0); GLOMERULAR FILTR. RATE CALC 54.0 mL/min (>90); GLUCOSE,RANDOM 158.0 mg/dL (70-105); SODIUM SERUM 139.0 mmol/L (136-145); UREA NITROGEN, BLOOD 12.0 mg/dL (7-18)
[2025-07-23 08:00] VITALS: BP 134/49; PULSE 73; RESP 20; TEMP 98.1; O2SAT 97
[2025-07-23 08:09] LABS: C DIFFICILE TOXIN A/B Not Detected (Not Detected); ENTEROAGGREGATIVE ECOLI Not Detected (Not Detected); GIARDIA LAMBLIA Not Detected (Not Detected); PLESIOMONAS SHIGELOIDES Not Detected (Not Detected); SAPOVIRUS Not Detected (Not Detected); SHIGELLA/ENTEROINVASIVE E COLI Not Detected (Not Detected); VIBRIO Not Detected (Not Detected); VIBRIO CHOLERAE Not Detected (Not Detected)
--- NOTE | 2025-07-23 10:28 | PN ---
[facility] PROGRESS NOTE Date Patient Seen: Jul 23, 2025 Time of Visit: 10:28 Supervising Physician: LOC PARRISH MD Primary Care Physician: LUIS BEARD MD Outpatient Specialists: [ ] Inpatient Consults: [facility] PROBLEM LIST: Septic shock from acute complicated cystitis POA resolved Klebsiella Pneumoniae Acute complicated cystitis, POA, Prerenal CHANCE on CKD, POA, improving Severe dehydration from high output ileostomy, POA Electrolyte derangement hyperkalemia, hypochloremia, hyponatremia. Mild Pancreatitis Elevated lactic acid, POA Hyperglycemia in the presence of type 2 diabetes mellitus, POA Chronic anemia likely from CKD Chronic problem list/history: Rectal cancer status post low anterior resection, robotic creation of diverting ileostomy Hyperlipidemia Diabetes mellitus type two with hyperglycemia INTERVAL HISTORY: No major overnight events. Currently on NS at 150 mL/hour hemodynamically stable with a blood pressure 120/58 heart rate in the 60s respiratory rate of 12 saturating 97%. She is in no apparent respiratory distress at room air. H&H is stable 8.6/28.2 Platelet count is normal 166 K. chemistries shows improved kidneys creatinine of 1.2 GFR of 49 CO2 of 20. GFR of 49 magnesium of 1.70 patient is growing Klebsiella pneumoniae in the urine. Susceptible to Zosyn. She is off pressors. No complains at this time. REVIEW OF SYSTEMS: 12 point ROS reviewed with patient. Pertinent positives mentioned above. Otherwise negative. PHYSICAL EXAM: GENERAL: alert, weak, awake oriented x 3 HEENT: EOMI, Sclera non icteric, moist mucosa NECK: Supple, no JVD, trachea midline LUNGS: Clear breath sounds bilaterally. No wheezes HEART: Regular rate and rhythm. Normal S1 and S2, without murmurs. Right chest PermCath ABD: Obese Abdomen soft, nontender. Bowel sounds present. colostomy Urinary: Coronado catheter in place EXT: No clubbing cyanosis or edema NEURO: Alert and oriented to person, follows commands Vital Signs (last 8hr) Date Time Temp Pulse Resp B/P (MAP) Pulse Ox O2 Delivery O2 Flow Rate FiO2 07/23/25 04:00 98.4 69 16 133/56 94 Room Air LABS: Hematology Labs: Test 07/23/25 03:28 07/22/25 05:14 Range/Units White Blood Count 5.0 4.8-10.8 K/uL Red Blood Count 2.86 L 4.00-5.50 MIL/uL Hemoglobin 8.2 L 12.0-16.0 g/dL Hematocrit 26.1 L 36-48 % Mean Corpuscular Volume 91.3 79-99 fL Mean Corpuscular Hemoglobin 28.7 27.0-33.0 pg Mean Corpuscular Hemoglobin Concent 31.4 L 32.0-36.0 g/dL Red Cell Distribution Width 15.9 H 11.0-15.5 % Platelet Count 150 130-400 K/uL Mean Platelet Volume 9.2 7.5-10.5 fL Immature Granulocyte % (Auto) 1.6 H 0-1 % Neutrophils (%) (Auto) 49.4 40.0-77.0 % Lymphocytes (%) (Auto) 29.5 21.0-51.0 % Monocytes (%) (Auto) 15.3 H 3.0-13.0 % Eosinophils (%) (Auto) 3.4 0.0-8.0 % Basophils (%) (Auto) 0.8 0.0-5.0 % Neutrophils # (Auto) 2.5 1.8-7.7 K/uL Lymphocytes # (Auto) 1.5 1.0-4.8 K/uL Monocytes # (Auto) 0.8 0.1-1.0 K/uL Eosinophils # (Auto) 0.17 0.00-0.70 K/uL Basophils # (Auto) 0.04 0.00-0.20 K/uL Absolute Immature Granulocyte (auto 0.08 0-1 K/uL Nucleated Red Blood Cells 0.0 0.0-0.19 % White Cell Morphology Comment See comments Red Blood Cell Morphology See comments Chemistry Labs: Test 07/23/25 03:28 07/22/25 20:10 07/22/25 05:14 07/21/25 16:15 Range/Units Sodium Level 139 136-145 mmol/L Potassium Level 4.8 3.5-5.1 mmol/L Chloride Level 109 101-111 mmol/L Carbon Dioxide Level 22 21-32 mmol/L Blood Urea Nitrogen 12 7-18 mg/dL Creatinine 1.1 H 0.5-1.0 mg/dL Glomerular Filtration Rate Calc 54 >90 mL/min Random Glucose 158 H 70-105 mg/dL Total Calcium 8.0 L 8.5-10.1 mg/dL Magnesium Level 1.80 1.80-2.40 mg/dL Whole Blood Glucose 177 H 70-110 MG/DL Iron Level 37 L 50-170 mcg/dL Total Iron Binding Capacity 193 L 250-450 mcg/dL Percent Iron Saturation 19.1 L 22-44 % Lipase 43 16-77 U/L Lactic Acid Level 2.5 0.8-2.5 mmol/L DIAGNOSTICS / RADIOLOGY RESULTS: [ ] PLAN Transfer to ICU with continuous cardiac and pulse oximetry monitoring. Continue Zosyn 3.375 IV q.12 hours per renal dose. Start to the Levophed IV to keep map above 65. Titrate down and wean off Levophed. Continue midodrine 10 mg p.o. t.i.d.. NS 1 L bolus now then NS at 100 mL an hour. (ED administered 30 mL/kilos) Consult Dr. Quarles, Nephrology for acute renal failure. Consult GI. P.r.n. medications for pain management, nausea, vomiting, hypertension, fever, constipation Glucometer checks a.c. and HS with insulin regular sliding scale per protocol. Blood pressure checks every 4 hours and as needed. Reconcile home medications once available. Monitor renal and liver function. Monitor electrolytes and treat accordingly. A.m. labs. GI and DVT prophylaxis. Further orders/plan per hospitalization course. NEURO: Minimize central acting medications as possible. Maintain fall precautions, adequate lighting during the day PULMONARY: Supplemental 02 as needed. Maintain aspiration precautions at all times CARDIOVASCULAR: Follow hemodynamics. Vital signs per facility protocol GI & NUTRITION: Continue with nutritional support. Continue stool softeners and laxatives as needed. KIDNEYS & ELECTROLYTES: Strict monitoring of intake, output and overall fluid balance. Avoid nephrotoxic medications to the extent possible. Medications to be dosed according to renal function. Monitor electrolytes and replace as needed ENDOCRINE: Maintain blood glucose between 100-180 at all times. Hypoglycemia protocol in place INFECTIOUS DISEASE: Trend temperature, WBC and procalcitonin level Follow cultures, deescalate antibiotics as soon as possible. Panculture if new onset fever ONCOLOGY/HEMATOLOGY/COAGULATION: Monitor for s/s of bleeding Monitor hemoglobin, coagulation studies as needed SKIN: Pressure ulcer prevention per facility protocol Specialty mattress ORTHO/REHAB: Continue PT/OT Prophylaxis: Continue GI and DVT prophylaxis Code Status: Full Resuscitation Disposition: TBD Total critical care time over 60 minutes. MILLARD,TODD J [facility] Jul 23, 2025 10:28
[2025-07-23 12:00] VITALS: BP 118/62; PULSE 89; RESP 21; TEMP 97.9
[2025-07-23 13:15] VITALS: BP 97/62; PULSE 89; RESP 16; TEMP 97.9
--- NOTE | 2025-07-23 13:34 | NUR ---
ARRIVED AT 1315 VIA WHEELCHAIR, ABLE TO AMBULATE, VITALS BP 97/62, HR 88, RR 18, O2 SAT 98 ROOM AIR, DENIES ANY PAIN. ILEOSTOMY NOTED DRAINING BROWN FLUID. RODARTE CATHETER REMOVED, PATIENT ABLE TO VOID. DRESSING ON ABDOMEN COVERING ROMOVAL OF ZULLY DRAIN.
--- NOTE | 2025-07-23 14:53 | PN ---
GASTROENTEROLOGY PROGRESS NOTE Date of Visit: Jul 23, 2025 Time of Visit: 14:49 Events / Notes: [ Patient remains afebrile. Bps are holding with levophed 0.1mcg, and midodrine 10mg tid. Patient started on Lomotil last night. She continues on Zosyn b.i.d. Patient has had a total of 1500 mL of ileostomy output in the past 24 hours. WBC of 5.3, hemoglobin 8.6, hematocrit 22, platelets 166. BUN of 17, creatinine improved, now at 1.2. Glucose 144, calcium 8.2, magnesium 1.70. Iron of 37, TIBC 193 with 19.1% saturation. Lipase 43. On exam patient is awake, alert, and oriented, and in no acute distress. Her respirations are unlabored. She reports doing better. She denies having any pain. Ileostomy output with oatmeal like succus. Coronado catheter draining clear yellow urine. Patient reports eating better today. We will continue with Lomotil ac/hs. 07/23/25: Patient has remained hemodynamically stable. She has had 200 mL of ileostomy output. WBC of 5.0, hemoglobin 8.2, creatinine 1.1, calcium 8.0. ] Review of Systems: CONSTITUTIONAL: No malaise or change in sensation of wellbeing. ENMT: No rhinorrhea, otorrhea, sinus pain, ear ache. CARDIOVASCULAR: No angina, palpitations, orthopnea or paroxysmal dyspnea. RESPIRATORY: No SOB. GASTROINTESTINAL: No abdominal pain, nausea, vomiting, diarrhea, hematemesis, melena or change in the patient's habitual bowel movements consistency/number. GENITOURINARY: No dysuria, hematuria or change in bladder continence. MUSCULOSKELETAL: No new muscle pain or decrease in muscular strength. No new joint swelling, redness or tenderness. SKIN: No new rash. Physical Exam: GEN: Awake, alert, oriented in person, time and place, and in no acute distress. HEENT: No rhinorrhea. Oral mucosa is pink, moist and within normal limits. CHEST: Lung auscultation revealed normal breath sounds bilaterally. CARDIAC:Heart sounds are regular. ABD: Soft, non-tender and not distended. No peritoneal signs on palpation. Normal bowel sounds. Ileostomy with watery to oatmeal like output. EXT: No cyanosis or clubbing. No edema. SKIN: Intact. No rashes. NEURO: Alert and oriented to name, place and person.No focal motor deficits. Normal speech. Vital Signs (last 8hr) Date Time Temp Pulse Resp B/P (MAP) Pulse Ox O2 Delivery O2 Flow Rate FiO2 07/23/25 13:15 97.9 89 16 97/62 98 Room Air 07/23/25 12:00 97.9 89 21 118/62 93 Room Air 07/23/25 08:00 97 Room Air* 0 21 07/23/25 08:00 98.1 73 20 134/49 95 Room Air Laboratory: [ ] Laboratory: Test 07/23/25 11:35 07/23/25 03:28 07/22/25 05:14 07/21/25 16:25 Range/Units Whole Blood Glucose 239 H 70-110 MG/DL White Blood Count 5.0 4.8-10.8 K/uL Red Blood Count 2.86 L 4.00-5.50 MIL/uL Hemoglobin 8.2 L 12.0-16.0 g/dL Hematocrit 26.1 L 36-48 % Mean Corpuscular Volume 91.3 79-99 fL Mean Corpuscular Hemoglobin 28.7 27.0-33.0 pg Mean Corpuscular Hemoglobin Concent 31.4 L 32.0-36.0 g/dL Red Cell Distribution Width 15.9 H 11.0-15.5 % Platelet Count 150 130-400 K/uL Mean Platelet Volume 9.2 7.5-10.5 fL Immature Granulocyte % (Auto) 1.6 H 0-1 % Neutrophils (%) (Auto) 49.4 40.0-77.0 % Lymphocytes (%) (Auto) 29.5 21.0-51.0 % Monocytes (%) (Auto) 15.3 H 3.0-13.0 % Eosinophils (%) (Auto) 3.4 0.0-8.0 % Basophils (%) (Auto) 0.8 0.0-5.0 % Neutrophils # (Auto) 2.5 1.8-7.7 K/uL Lymphocytes # (Auto) 1.5 1.0-4.8 K/uL Monocytes # (Auto) 0.8 0.1-1.0 K/uL Eosinophils # (Auto) 0.17 0.00-0.70 K/uL Basophils # (Auto) 0.04 0.00-0.20 K/uL Absolute Immature Granulocyte (auto 0.08 0-1 K/uL Nucleated Red Blood Cells 0.0 0.0-0.19 % Sodium Level 139 136-145 mmol/L Potassium Level 4.8 3.5-5.1 mmol/L Chloride Level 109 101-111 mmol/L Carbon Dioxide Level 22 21-32 mmol/L Blood Urea Nitrogen 12 7-18 mg/dL Creatinine 1.1 H 0.5-1.0 mg/dL Glomerular Filtration Rate Calc 54 >90 mL/min Random Glucose 158 H 70-105 mg/dL Total Calcium 8.0 L 8.5-10.1 mg/dL Magnesium Level 1.80 1.80-2.40 mg/dL White Cell Morphology Comment See comments Red Blood Cell Morphology See comments Iron Level 37 L 50-170 mcg/dL Total Iron Binding Capacity 193 L 250-450 mcg/dL Percent Iron Saturation 19.1 L 22-44 % Lipase 43 16-77 U/L Urine Random Creatinine 62.70 30-135 mg/dL Urine Random Sodium 61 40-220 mmol/l Test 07/21/25 16:15 Range/Units Lactic Acid Level 2.5 0.8-2.5 mmol/L Current Medications Medications (Trade) Dose Ordered Sig/Evelyne Route PRN Reason Start Time Stop Time Status Last Admin Dose Admin Acetaminophen (TYLenol 325MG TAB) 650 mg Q6H PRN PO FEVER/MILD PAIN LEVEL 1-3 07/20/25 20:30 08/19/25 20:29 Acetaminophen (TYLenol 650MG SUPPOSITORY) 650 mg Q6H PRN RC FEVER / MILD PAIN 1-3 IF NPO 07/20/25 20:30 08/19/25 20:29 Ceftriaxone Sodium (Rocephin 2gm Inj) 2 gm Q24H IVPB 07/22/25 16:30 08/01/25 16:29 07/22/25 16:43 2 GM Diphenoxylate HCl/ Atropine (Lomotil) 1 tab ACHS PO 07/21/25 21:00 08/20/25 20:59 07/23/25 11:43 1 TAB Enoxaparin Sodium (Lovenox) 40 mg DAILY SQ 07/21/25 09:00 08/20/25 08:59 07/23/25 07:54 40 MG Famotidine (Pepcid 20mg Tab) 20 mg Q48H PO 07/20/25 21:00 08/19/25 20:59 07/22/25 20:18 20 MG Insulin Human Regular (humuLIN R 100 UNIT/ML 3ML) INSULIN SLIDING SCAL... ACHS SQ 07/20/25 21:00 08/19/25 20:59 07/23/25 11:44 8 UNIT Lactated Ringer's 1,000 ml @ 100 mls/hr Q10H IV 07/22/25 10:00 08/21/25 09:59 07/22/25 20:18 100 MLS/HR Loperamide HCl (Immodium Liquid) 2 mg ACHS PO 07/21/25 11:30 07/21/25 11:48 DC Loperamide HCl (Imodium) 2 mg ACHS PO 07/21/25 11:50 07/21/25 19:54 DC 07/21/25 16:20 2 MG Loperamide HCl (Imodium) 2 mg AD PRN PO AFTER EACH LOOSE STOOL 07/21/25 08:30 07/21/25 10:37 DC 07/21/25 08:45 2 MG Magnesium Sulfate 50 ml @ 0 mls/hr PROTOCOL PRN IV Hypomagnesmia 07/22/25 06:30 08/21/25 06:29 07/22/25 06:18 25 MLS/HR Midodrine (PROAMatine 5 MG TABLET) 10 mg TID PO 07/20/25 20:00 08/19/25 19:59 07/22/25 14:05 10 MG Norepinephrine 250 ml @ 29.925 mls/ hr PROTOCOL IV 07/20/25 19:00 07/22/25 19:00 DC 07/21/25 06:47 14.963 MLS/HR Ondansetron HCl (zoFRAN 4MG INJ) 4 mg Q6H PRN IVP NAUSEA/VOMITING 07/20/25 20:30 08/19/25 20:29 Piperacillin Sod/ Tazobactam Sod 50 ml @ 200 mls/hr ONCE STAT IVPB 07/20/25 16:01 07/20/25 16:15 DC 07/20/25 16:10 200 MLS/HR Piperacillin Sod/ Tazobactam Sod (Zosyn 3.375gm+NS 50ml) 3.375 gm Q12H IVPB 07/21/25 02:00 07/22/25 16:05 DC 07/22/25 14:05 3.375 GM Psyllium Hydrophilic Mucilloid (Metamucil) 1 tbs BID PO 07/22/25 21:00 08/21/25 20:59 07/23/25 07:54 1 TBS Sodium Chloride 0 ml @ 999 mls/hr Q0M IV 07/21/25 12:30 07/22/25 08:29 DC 07/21/25 16:06 999 MLS/HR Sodium Chloride 1,000 ml @ 0 mls/hr Q0M IV 07/21/25 13:31 07/22/25 08:29 DC Sodium Chloride 1,000 ml @ 150 mls/hr Q6H40M IV 07/20/25 20:30 07/22/25 09:50 DC 07/22/25 02:18 150 MLS/HR Sodium Chloride (NS 50ml) 50 ml AD IV 07/20/25 23:10 07/21/25 11:48 DC Temazepam (restORIL 15 MG CAP) 15 mg HS PRN PO INSOMNIA/SLEEP 07/20/25 20:30 08/19/25 20:29 Diagnostics / Radiology: [COPY/PASTE HERE IF NO REPORTS PLEASE DELETE SECTION] Assessment: [Ileostomy status Dehydration Hypotension Type 2 diabetes History of rectal cancer status post surgical resection ] Plan: [Case discussed with GI and Colorectal team Recommend Lomotil one tab p.o. a.c. and HS. to maintain oatmeal like ileostomy output consistency Recommend patient receive LR 1000ml Iv bolus over 2 hours today. Monitor ileostomy output and report any output greater than 1000 mL 24 hours Recommend patient eat 3 meals and 3 snacks to aid in output consistency Patient may be discharge from Gi standpoint once Iv hydration has been completed She is to f/u at [facility] as scheduled with colorectal team Orders for outpatient IV hydration with LR 1000ml three times a week (M,W,F) given. Please call with questions, concerns, and change in clinical status Thank you for allowing us to be part of this patient's care.] GALINA NIOXN [employer]ATOR Jul 23, 2025 14:53
[2025-07-23] MEDS: LACTATED RINGERS 1000ML IV SCH (15:54)
--- NOTE | 2025-07-23 16:12 | DS ---
[facility] DISCHARGE SUMMARY Date Patient Seen: Jul 23, 2025 Time of Visit: 16:12 Supervising Physician: Ze Peraza MD Primary Care Physician: LUIS BEARD MD Outpatient Specialists: [ ] Inpatient Consults: [facility] PROBLEM LIST: Septic shock from acute complicated cystitis POA resolved Klebsiella Pneumoniae Acute complicated cystitis, POA, Prerenal CHANCE on CKD, POA, improved DHN resolved ileostomy high output decreased. (200ml/24hrs) Mild Pancreatitis, resolved Elevated lactic acid, POA, resolved Hyperglycemia in the presence of type 2 diabetes mellitus, POA Chronic anemia likely from CKD Chronic problem list/history: Rectal cancer status post low anterior resection, robotic creation of diverting ileostomy Hyperlipidemia Diabetes mellitus type two with hyperglycemia HOSPITAL COURSE: Chief Complaint: Dizziness, night headaches, and persistently low blood pressures in the 7080 mm Hg systolic range for one week. HPI The patient presented to [facility] after experiencing dizziness and nightly headaches in the setting of hypotension for one week. She has an ileostomy with output >1 L/day. She denied fever, chills, nausea, vomiting, or new abdominal pain. She was scheduled for outpatient IV fluid therapy but presented to the ED for worsening symptoms ED Findings: Vitals: HR 99 bpm, RR 18, BP 86/51 mm Hg, SpO? 95 % RA, T 98.1 F Labs: Hgb 9.6 g/dL, Hct 29.5 %, Na 124 mmol/L, K 5.3 mmol/L, Cl 86 mmol/L, BUN 59 mg/dL, Cr 5.1 mg/dL, Glucose 155 mg/dL, Lactic acid 4.2 mmol/L, Troponin < 4 ng/L, Lipase 145 U/L UA: Negative fr nitrites; leukocyte esterase 25 Urine culture: Grew Klebsiella pneumoniae The patient met criteria for septic shock secondary to a complicated urinary tract infection. She received 30 mL/kg of isotonic IV fluids and briefly required low-dose vasopressor support. Broad-spectrum antibiotics were initiated with zosyn, then de-escalated based on sensitivities. Her ileostomy output, initially >1 L/24 h, improved to ~200 mL/24 h after starting loperamide 2 mg PO TID and increasing dietary fiber. Electrolytes and renal function gradually improved with hydration and infection control. GI was consulted for high output ileostomy. They started pt on lomitil 1 tab ACHS. Metamucil was added to increase fiber intake and improve stool consistency. Today patient was hemodynamically stable afebrile kidneys have improved with latest creatinine of 1.1 GFR of 54. Patient was given 1 L of LR prior to discharge. She was given a prescription for outpatient IV fluid per GI. Patient to follow up with them within one week. CHRONIC PROBLEMS: continue previous management per PCP unless otherwise indicated PATHOLOGIST FINDINGS/RECOMMENDATIONS: [ ] Per GI recommendations: [Case discussed with GI and Colorectal team Recommend Lomotil one tab p.o. a.c. and HS. to maintain oatmeal like ileostomy output consistency Recommend patient receive LR 1000ml Iv bolus over 2 hours today. Monitor ileostomy output and report any output greater than 1000 mL 24 hours Recommend patient eat 3 meals and 3 snacks to aid in output consistency Patient may be discharge from Gi standpoint once Iv hydration has been completed She is to f/u at [facility] as scheduled with colorectal team Orders for outpatient IV hydration with LR 1000ml three times a week (M,W,F) given. Please call with questions, concerns, and change in clinical status Thank you for allowing us to be part of this patient's care.] PROCEDURES: as mentioned above CT abdomen and pelvis without contrast on 07/21/25: IMPRESSION: 1. Findings suggest low-grade distal small bowel obstruction, which was present previously but appears to be overall improved. Chest x-ray on 07/21/25: IMPRESSION: No acute cardiopulmonary pathology is evident. DISCHARGE MEDICATIONS: Medications called in to pharmacy of choice: Levaquin 750 mg p.o. q.day x5 days Midodrine 10 mg 3 times a day Patient to continue Lomotil as previously prescribed one tablet a.c. and HS see other home meds below Pt hemodynamically stable and afebrile at time of discharge. PCP notified of patients admission, hospital course and discharge. Continued Medications: Calcium Carbonate (Calcium) 600 Mg Calcium (1500 Mg) Tablet 600 MG PO DAILY, TAB Cholecalciferol (Vitamin D3) (Vitamin D3) 25 Mcg (1000 Unit) Capsule 25 MCG PO DAILY, CAP Insulin NPL/Insulin Lispro (Humalog Mix 75-25 Kwikpen) 100 Unit/Ml (75-25) Insuln.pen 50 UNITS SQ DAILY, SYRINGE Insulin NPL/Insulin Lispro (Humalog Mix 75-25 Kwikpen) 100 Unit/Ml (75-25) Insuln.pen 55 UNITS SQ HS, SYRINGE Simvastatin (Simvastatin) 40 Mg Tablet 40 MG PO HS, TAB Discontinued Medications: Lisinopril (Lisinopril) 5 Mg Tablet 5 MG PO DAILY, TAB Metformin HCl (Metformin HCl) 1,000 Mg Tablet 1000 MG PO DAILY, TAB PHYSICAL EXAM: GENERAL: alert, weak, awake oriented x 3 HEENT: EOMI, Sclera non icteric, moist mucosa NECK: Supple, no JVD, trachea midline LUNGS: Clear breath sounds bilaterally. No wheezes HEART: Regular rate and rhythm. Normal S1 and S2, without murmurs. Right chest PermCath ABD: Obese Abdomen soft, nontender. Bowel sounds present. colostomy Urinary:no urinary retention EXT: No clubbing cyanosis or edema NEURO: Alert and oriented to person, follows commands FOLLOW-UP: Follow-up with PCP in 2-3 days Follow up with GI as recommended RECOMMENDATIONS: See Discharge Instructions This case was seen and discussed with my supervising physician. More than 30 minutes spent on discharge process, including evaluation of the patient, discussion with nursing staff, medication reconciliation and follow-up appointments ATTESTATION BY PHYSICIAN I attest that I reviewed and discussed the case with the Physician Supervisor [place] as well as agree with the Physician Supervisor [place]'s findings, plans of care, and documentation above. Ze Mckinney MD, NELLY J [facility] Jul 23, 2025 16:12
[2025-07-23 16:14] VITALS: BP 116/55; PULSE 56; RESP 18; TEMP 98.4
[2025-07-23] MEDS ORDERED: LEVO750T68 PO (16:25)
[2025-07-23] MEDS ORDERED: miDODRine HCL 5 MG TABLET PO (16:25)
[2025-07-23] MEDS ORDERED: Diphenoxylate Hcl/Atropine PO (16:25)
--- NOTE | 2025-07-23 19:32 | NUR ---
DISCHARGED DISCHARGED HOME, TAKE MEDICATIONS PRESCRIBED, FOLLOW MD RECOMMENDATIONS. FOLLOW UP WITH MD.
--- NOTE | 2025-07-23 22:52 | PN ---
FOLLOWUP PROGRESS NOTE SUBJECTIVE: A 69-year-old female with a previous history of colon cancer. The patient is status post colectomy. The patient initially presented with acute renal failure secondary to volume depletion. The patient's renal function is much improved. She is now tolerating a diet without difficulty and the patient is being seen as a followup visit for all of the above. REVIEW OF SYSTEMS: GENERAL: She is feeling improved. HEENT: No change in vision. No change in hearing. CARDIOVASCULAR: There are no current chest pains or palpitations. PULMONARY: There is no shortness of breath. GASTROINTESTINAL: As described above. MUSCULOSKELETAL: Complains of weakness. PHYSICAL EXAMINATION: VITAL SIGNS: Blood pressure is 133/56. Pulse is 60. She is afebrile. GENERAL: Chronically ill female lying in bed on the medical floor. HEENT: Head is atraumatic. Pupils are equal, round, and reactive to light. Oropharynx is without exudate. Nares are clear. NECK: There is no JVP. There is no thyromegaly. No mass. CARDIOVASCULAR: Regular. There is no S3 or S4 gallop. LUNGS: Coarse with equal thoracic movement. ABDOMEN: Soft, nondistended, nontender. EXTREMITIES: No clubbing or cyanosis. NEUROLOGICAL: She is awake. LABORATORY DATA: Sodium is 139, potassium is 4.8, BUN is 12, creatinine is 1, hemoglobin is 8.2, and hematocrit is 26. IMPRESSION: * Acute renal failure. * Volume depletion. * Anemia. * Persistent hypotension. PLAN: The patient's renal function is much improved. The patient now is tolerating a diet without difficulty. The patient's IV fluids can safely be discontinued. Should continue with the midodrine for the relative hypotension. Cortisol level is pending. The patient's family at the bedside. Multiple questions were all answered. TID: [id number] RECEIPT: [id number]
== END 2025-07-23 18:50 | disposition home or self-care (01) | DRG 871 ==
LOC: EDH 15:01 → EDHIP 18:28 → OBSVTOIN 18:28 → 2CH 21:45 → 3CH 07-23 13:15
PROVIDERS: ADMIT Internal Medicine; ATTEND Internal Medicine
DX: A41.9 Sepsis, unspecified organism (principal); K85.90 Acute pancreatitis without necrosis or infection, unspecified; R65.21 Severe sepsis with septic shock; E87.1 Hypo-osmolality and hyponatremia; E87.20 Acidosis, unspecified; N30.00 Acute cystitis without hematuria; N18.9 Chronic kidney disease, unspecified; E11.65 Type 2 diabetes mellitus with hyperglycemia; D63.1 Anemia in chronic kidney disease; E11.22 Type 2 diabetes mellitus with diabetic chronic kidney disease; E86.0 Dehydration; E78.5 Hyperlipidemia, unspecified; E87.5 Hyperkalemia; I12.9 Hypertensive chronic kidney disease with stage 1 through stage 4 chronic kidney disease, or unspecified chronic kidney disease; B96.1 Klebsiella pneumoniae [K. pneumoniae] as the cause of diseases classified elsewhere; E87.8 Other disorders of electrolyte and fluid balance, not elsewhere classified; Z93.2 Ileostomy status; Z90.49 Acquired absence of other specified parts of digestive tract; Z92.21 Personal history of antineoplastic chemotherapy; Z92.3 Personal history of irradiation; Z85.048 Personal history of other malignant neoplasm of rectum, rectosigmoid junction, and anus
CPT/HCPCS: 36415; 36600; 71045; 74176; 80048; 81001; 82435; 82533; 82570; 82803; 82947; 82948; 83540; 83550; 83605; 83690; 83735; 84100; 84132; 84295; 84300; 84443; 84484; 85018; 85025; 85027; 87040; 87046; 87086; 87186; 87324; 87507; 93005; 96360; 96361; 96374; 99285; A4606; G0378; J0696; J1650; J1756; J1815; J2543; J3475; J3490; J7030; J7050; J7120; A4215; A4216; A4221; A4223; A4663